=== PATIENT | male | born 1965 | race Caucasian/White ===

== ENCOUNTER 2018-05-10 22:36 | Emergency (ER) | payer OTHER ==
[2018-05-10 22:44] VITALS: BP 98/68; PULSE 110; RESP 18; TEMP 98.4
[2018-05-10] MEDS ORDERED: LIDOCAINE 1% INJ 10MG/ML (20 ML MDV) SQ STA (22:50)
--- NOTE | 2018-05-10 22:51 | ED ---
General Adult HPI - General Chief complaint: Wound/Laceration Stated complaint: hand lac Time Seen by Provider: 05/10/18 22:47 Source: patient, RN notes reviewed Mode of arrival: ambulatory Limitations: no limitations - History of Present Illness Initial comments: Patient 52-year-old male presented to the emergency room today with chief complaint of laceration to the left hand. Patient does admit that he was closing a lid on a can of vegetables when it causes laceration. Patient states tetanus is up-to-date. He denies any other complaints or symptoms at this time. Patient denies any recent fever, chills, shortness of breath, chest pain, back pain, abdominal pain, nausea or vomiting, numbness or tingling, headaches or visual changes, or any other complaints. - Related Data Home Medications Medication Instructions Recorded Confirmed ALPRAZolam [Xanax] 0.5 mg PO BID PRN 01/01/16 01/07/16 Albuterol Inhaler [Ventolin Hfa 1 - 2 puff INHALATION Q6HR PRN 01/01/16 01/07/16 Inhaler] Amitriptyline HCl 25 mg PO HS 01/01/16 01/01/16 Cholecalciferol [Vitamin D3] 2,000 unit PO DAILY 01/01/16 01/01/16 Fluticasone Nasal Percival [Flonase 1 spray EA NOSTRIL DAILY 01/01/16 01/07/16 Nasal Percival] Gabapentin [Neurontin] 200 mg PO TID 01/01/16 01/01/16 HYDROcodone/APAP 7.5-325MG [[place] 1 tab PO Q6HR PRN 01/01/16 01/07/16 7.5-325] Losartan [Cozaar] 12.5 mg PO DAILY 01/01/16 01/01/16 Methocarbamol [Robaxin] 1,000 mg PO HS 01/01/16 01/07/16 Metoprolol Succinate [Toprol XL] 50 mg PO HS 01/01/16 01/01/16 Metoprolol Succinate [Toprol XL] 100 mg PO QAM 01/01/16 01/01/16 Ranitidine HCl [Zantac] 150 mg PO BID 01/01/16 01/07/16 Simvastatin [Zocor] 20 mg PO HS 01/01/16 01/01/16 Spironolactone [Aldactone] 25 mg PO DAILY 01/01/16 01/01/16 Warfarin [Coumadin] 5 mg PO SUMOWETHFR 01/01/16 01/01/16 Warfarin [Coumadin] 7.5 mg PO TUSA 01/01/16 01/01/16 Pseudoephedrine [Sudafed] 1 cap PO DIRECTED PRN 01/07/16 01/07/16 Allergies Allergy/AdvReac Type Severity Reaction Status Date / Time diphenhydramine HCl Allergy Itching Verified 05/10/18 22:44 [From Benadryl] Review of Systems ROS Statement: Those systems with pertinent positive or pertinent negative responses have been documented in the HPI. ROS Other: All systems not noted in ROS Statement are negative. Past Medical History Past Medical History: Atrial Fibrillation, Hypertension Additional Past Medical History / Comment(s): migranes History of Any Multi-Drug Resistant Organisms: None Reported Past Surgical History: No Surgical Hx Reported Additional Past Surgical History / Comment(s): Ablasion for AFIB. Past Psychological History: No Psychological Hx Reported Smoking Status: Current every day smoker Past Alcohol Use History: Daily Past Drug Use History: None Reported General Exam - General Exam Comments Initial Comments: General: The patient is awake and alert, in no distress, and does not appear acutely ill. Neck: The neck is supple, there is no tenderness or JVD. Musculoskeletal: Patient shows good range of motion. Sensations intact. Cap refill less than 2 seconds. Radial pulse 2+. Strength 5/5 in all areas. Neurological: A&O x 3. CN II-XII intact, There are no obvious motor or sensory deficits. Coordination appears grossly intact. Speech is normal. Skin: Patient does have laceration to the web space treated first and second digit of the left hand. No active bleeding. Psychiatric: Normal mood and affect. Limitations: no limitations Course Vital Signs 05/10/18 22:41 Temperature 98.4 F Pulse Rate 110 H Respiratory 18 Rate Blood Pressure 98/68 O2 Sat by Pulse 95 Oximetry Procedures - Procedures Initial comment: 2 cm linear laceration to the first and second digit of the left hand. No active bleeding. The skin was anesthetized with 1% lidocaine. The laceration was then cleansed with and irrigated with normal saline. The wound was inspected , and there was no evidence of injury to deep structures. No foreign body was noted in the wound. A total of default value skin sutures were placed utilizing 4-0 nylon. Disposition Clinical Impression: Laceration Disposition: HOME SELF-CARE Condition: Good Instructions: Laceration (ED) Additional Instructions: Please return to the emergency room in 8-10 days to have sutures removed. Please watch for any signs of infection which may include increased pain, swelling, redness, fever or chills. Please return to emergency room for any signs of infection do occur. Please use clean soap and water over the area to prevent scabbing over your stitches. Please leave wound covered for the first 24-48 hours and then leave wound open to air. Please return to the emergency room for any other concerns. Is patient prescribed a controlled substance at d/c from ED?: No Referrals: Ranjeet Cano MD [Primary Care Provider] - 1-2 days Time of Disposition: 23:13
== END 2018-05-10 23:32 | disposition home or self-care (01) ==
LOC: EC 22:36
DX: S61.012A Laceration without foreign body of left thumb without damage to nail, initial encounter (principal); S61.211A Laceration without foreign body of left index finger without damage to nail, initial encounter; I48.91 Unspecified atrial fibrillation; I10 Essential (primary) hypertension; F17.200 Nicotine dependence, unspecified, uncomplicated; Z79.51 Long term (current) use of inhaled steroids; Z79.01 Long term (current) use of anticoagulants; Z79.899 Other long term (current) drug therapy; W26.8XXA Contact with other sharp object(s), not elsewhere classified, initial encounter; Y93.89 Activity, other specified
CPT/HCPCS: 99282; 12001; J2001

== ENCOUNTER 2019-11-22 12:23 | Emergency (ER) | payer OTHER ==
[2019-11-22 12:46] VITALS: PULSE 88; TEMP 97.9
[2019-11-22] MEDS ORDERED: SODIUM CHLORIDE 0.9% 1,000 ML IV STA (13:25)
--- NOTE | 2019-11-22 13:36 | ED ---
Fall HPI - General Chief Complaint: Fall Stated Complaint: head laceration Time Seen by Provider: 11/22/19 13:14 Source: patient, RN notes reviewed Mode of arrival: ambulatory Limitations: no limitations - History of Present Illness Initial Comments: 54-year-old male presents emergency Department with chief complaint of head injury. Patient states she's not exactly sure what happened. He states that something happened in the middle of night that he does not remember. He woke up with blood on his face, realize that there was a laceration to his scalp he did state that he must have fallen into his glass cabinet that there was broken glass, damage to his room. Patient admits that he takes multiple medications and makes him drowsy including Xanax, gabapentin, Flexeril and he states that he's been having insomnia issues so he took some Ambien last night which is not normal for him. Patient has no complaints of a mild headache at this time te tanus is up-to-date within last 5 years. Denies any blurred vision no focal weakness. - Related Data Home Medications Medication Instructions Recorded Confirmed ALPRAZolam [Xanax] 0.5 mg PO BID PRN 01/01/16 05/10/18 Cholecalciferol [Vitamin D3] 2,000 unit PO DAILY 01/01/16 05/10/18 Metoprolol Succinate [Toprol XL] 50 mg PO HS 01/01/16 05/10/18 Simvastatin [Zocor] 20 mg PO HS 01/01/16 05/10/18 Spironolactone [Aldactone] 25 mg PO DAILY 01/01/16 05/10/18 Amitriptyline HCl [Elavil] 50 mg PO HS 05/10/18 05/10/18 Flecainide [Tambocor] 50 mg PO Q12HR 05/10/18 05/10/18 Gabapentin [Neurontin] 300 mg PO BID 05/10/18 05/10/18 Warfarin [Coumadin] 5 mg PO MOWEFR 05/10/18 05/10/18 Warfarin [Coumadin] 10 mg PO SUTUTHSA 05/10/18 05/10/18 Allergies Allergy/AdvReac Type Severity Reaction Status Date / Time diphenhydramine HCl Allergy Itching Verified 11/22/19 12:46 [From Benadryl] Review of Systems ROS Statement: Those systems with pertinent positive or pertinent negative responses have been documented in the HPI. ROS Other: All systems not noted in ROS Statement are negative. Past Medical History Past Medical History: Atrial Fibrillation, Hypertension Additional Past Medical History / Comment(s): migranes History of Any Multi-Drug Resistant Organisms: None Reported Past Surgical History: Ablation Additional Past Surgical History / Comment(s): Ablasion for AFIB. Past Psychological History: No Psychological Hx Reported Smoking Status: Current every day smoker Past Alcohol Use History: Daily Past Drug Use History: Marijuana General Exam Limitations: no limitations General appearance: alert, in no apparent distress Head exam: Present: atraumatic, normocephalic. Absent: normal inspection (Large 6 cm laceration to left side of scalp) Eye exam: Present: normal appearance, PERRL, EOMI. Absent: scleral icterus, conjunctival injection, periorbital swelling ENT exam: Present: normal exam, normal oropharynx, mucous membranes moist Neck exam: Present: normal inspection, full ROM. Absent: tenderness, meningismus, lymphadenopathy Respiratory exam: Present: normal lung sounds bilaterally. Absent: respiratory distress, wheezes, rales, rhonchi, stridor Cardiovascular Exam: Present: regular rate, normal rhythm, normal heart sounds. Absent: systolic murmur, diastolic murmur, rubs, gallop, clicks GI/Abdominal exam: Present: soft, normal bowel sounds. Absent: distended, tenderness, guarding, rebound, rigid Extremities exam: Present: normal inspection, full ROM, normal capillary refill. Absent: tenderness, pedal edema, joint swelling, calf tenderness Back exam: Absent: CVA tenderness (R), CVA tenderness (L) Neurological exam: Present: alert, oriented X3, CN II-XII intact, reflexes normal. Absent: motor sensory deficit Skin exam: Present: warm, dry, intact, normal color. Absent: rash Course Vital Signs 11/22/19 12:39 Temperature 97.9 F Pulse Rate 88 Respiratory 20 Rate Blood Pressure 144/96 O2 Sat by Pulse 97 Oximetry Procedures - Laceration Laceration #1 Indication: laceration Site: scalp Size (cm): 6 Description: irregular Depth: simple, single layer Anesthetic Used: lidocaine 1%, without epi Anesthesia Technique: local infiltration Amount (mls): 8 Pre-repair: wound explored, irrigated extensively, deep structures intact Type of Sutures: nylon Size of Sutures: 5-0 Number of Sutures: 10 Technique: simple, interrupted Patient Tolerated Procedure: well, no complications Medical Decision Making - Medical Decision Making 54-year-old male presented for head injury, laceration. Patient had lab work, EKG, CT her brain and C-spine, rib series. There may be possible rib fracture though he did have multiple prior rib fractures that were healing. Patient has no evidence of pneumothorax. CT shows old fractures and possible mastoiditis though he has no clinical signs and no tenderness of his mastoid. Patient's scalp laceration was thoroughly cleaned, closed. Patient's tetanus is up-to-date. Patient will be discharged with recheck within 24 hours and return parameters were discussed. I do feel that patient did not have the recommendation of his injury secondary to polysubstance drugs including Ambien, Flexeril, Xanax, gabapentin. I did discuss that he should not mix his medications and he will discuss this with his PCP. - Lab Data Result diagrams: 11/22/19 13:29 11/22/19 13:29 Lab Results 11/22/19 11/22/19 11/22/19 Range/Units 13:29 13:29 13:29 WBC 7.1 (3.8-10.6) k/uL RBC 4.19 L (4.30-5.90) m/uL Hgb 13.2 (13.0-17.5) gm/dL Hct 40.5 (39.0-53.0) % MCV 96.5 (80.0-100.0) fL MCH 31.5 (25.0-35.0) pg MCHC 32.6 (31.0-37.0) g/dL RDW 13.1 (11.5-15.5) % Plt Count 200 (150-450) k/uL Neutrophils % 71 % Lymphocytes % 19 % Monocytes % 6 % Eosinophils % 1 % Basophils % 0 % Neutrophils # 5.0 (1.3-7.7) k/uL Lymphocytes # 1.4 (1.0-4.8) k/uL Monocytes # 0.4 (0-1.0) k/uL Eosinophils # 0.1 (0-0.7) k/uL Basophils # 0.0 (0-0.2) k/uL PT 9.6 (9.0-12.0) sec INR 0.9 (<1.2) APTT 23.2 (22.0-30.0) sec Sodium 141 (137-145) mmol/L Potassium 4.6 (3.5-5.1) mmol/L Chloride 108 H (98-107) mmol/L Carbon Dioxide 25 (22-30) mmol/L Anion Gap 8 mmol/L BUN 17 (9-20) mg/dL Creatinine 0.69 (0.66-1.25) mg/dL Est GFR (CKD-EPI)AfAm >90 (>60 ml/min/1.73 sqM) Est GFR (CKD-EPI)NonAf >90 (>60 ml/min/1.73 sqM) Glucose 111 H (74-99) mg/dL Calcium 9.6 (8.4-10.2) mg/dL Magnesium 2.0 (1.6-2.3) mg/dL Total Bilirubin 0.6 (0.2-1.3) mg/dL AST 39 (17-59) U/L ALT 62 H (4-49) U/L Alkaline Phosphatase 75 (38-126) U/L Troponin I (0.000-0.034) ng/mL Total Protein 6.9 (6.3-8.2) g/dL Albumin 4.4 (3.5-5.0) g/dL Urine Color Urine Appearance (Clear) Urine pH (5.0-8.0) Ur Specific [place] (1.001-1.035) Urine Protein (Negative) Urine Glucose (UA) (Negative) Urine Ketones (Negative) Urine Blood (Negative) Urine Nitrite (Negative) Urine Bilirubin (Negative) Urine Urobilinogen (<2.0) mg/dL Ur Leukocyte Esterase (Negative) 11/22/19 11/22/19 Range/Units 13:29 13:33 WBC (3.8-10.6) k/uL RBC (4.30-5.90) m/uL Hgb (13.0-17.5) gm/dL Hct (39.0-53.0) % MCV (80.0-100.0) fL MCH (25.0-35.0) pg MCHC (31.0-37.0) g/dL RDW (11.5-15.5) % Plt Count (150-450) k/uL Neutrophils % % Lymphocytes % % Monocytes % % Eosinophils % % Basophils % % Neutrophils # (1.3-7.7) k/uL Lymphocytes # (1.0-4.8) k/uL Monocytes # (0-1.0) k/uL Eosinophils # (0-0.7) k/uL Basophils # (0-0.2) k/uL PT (9.0-12.0) sec INR (<1.2) APTT (22.0-30.0) sec Sodium (137-145) mmol/L Potassium (3.5-5.1) mmol/L Chloride (98-107) mmol/L Carbon Dioxide (22-30) mmol/L Anion Gap mmol/L BUN (9-20) mg/dL Creatinine (0.66-1.25) mg/dL Est GFR (CKD-EPI)AfAm (>60 ml/min/1.73 sqM) Est GFR (CKD-EPI)NonAf (>60 ml/min/1.73 sqM) Glucose (74-99) mg/dL Calcium (8.4-10.2) mg/dL Magnesium (1.6-2.3) mg/dL Total Bilirubin (0.2-1.3) mg/dL AST (17-59) U/L ALT (4-49) U/L Alkaline Phosphatase (38-126) U/L Troponin I <0.012 (0.000-0.034) ng/mL Total Protein (6.3-8.2) g/dL Albumin (3.5-5.0) g/dL Urine Color Yellow Urine Appearance Clear (Clear) Urine pH 6.0 (5.0-8.0) Ur Specific [place] 1.012 (1.001-1.035) Urine Protein Negative (Negative) Urine Glucose (UA) Negative (Negative) Urine Ketones Negative (Negative) Urine Blood Negative (Negative) Urine Nitrite Negative (Negative) Urine Bilirubin Negative (Negative) Urine Urobilinogen <2.0 (<2.0) mg/dL Ur Leukocyte Esterase Negative (Negative) Disposition Clinical Impression: Fall, Scalp laceration, Rib fracture Disposition: HOME SELF-CARE Condition: Stable Instructions (If sedation given, give patient instructions): Head Injury (ED), Laceration (ED) Additional Instructions: Have sutures removed in 10 days.Please return to the Emergency Department if symptoms worsen or any other concerns. Is patient prescribed a controlled substance at d/c from ED?: No Referrals: Ranjeet Cano MD [Primary Care Provider] - 1-2 days
[2019-11-22 14:06] LABS: Basophils % (A) 0 %; Eosinophils # (A) 0.1 k/uL (0-0.7); Eosinophils % (A) 1 %; HCT 40.5 % (39.0-53.0); HGB 13.2 gm/dL (13.0-17.5); Lymphocytes # (A) 1.4 k/uL (1.0-4.8); Lymphocytes % (A) 19 %; MCH 31.5 pg (25.0-35.0); MCHC 32.6 g/dL (31.0-37.0); MCV 96.5 fL (80.0-100.0); Mean Platelet Volume 8.7; Monocytes # (A) 0.4 k/uL (0-1.0); Monocytes % (A) 6 %; Neutrophils % (A) 71 %; Platelet Count 200 k/uL (150-450); RBC 4.19 m/uL (4.30-5.90); RDW 13.1 % (11.5-15.5); WBC 7.1 k/uL (3.8-10.6)
[2019-11-22 14:14] LABS: Appearance,Urine Clear (Clear); Bilirubin,Urine Negative (Negative); Blood,Urine Negative (Negative); Color,Urine Yellow; Glucose,Urine (UA) Negative (Negative); Ketones,Urine Negative (Negative); Leukocyte Esterase,Urine Negative (Negative); Nitrite,Urine Negative (Negative); Protein,Urine Negative (Negative); Specific Gravity,Urine 1.012 (1.001-1.035); Urobilinogen,Urine <2.0 mg/dL (<2.0)
[2019-11-22 14:17] LABS: ALT 62 U/L (4-49); AST 39 U/L (17-59); African American GFR (CKD) >90 (>60 ml/min/1.73 sqM); Albumin 4.4 g/dL (3.5-5.0); Alkaline Phosphatase 75 U/L (38-126); Anion Gap 8 mmol/L; Blood Urea Nitrogen 17 mg/dL (9-20); Calcium 9.6 mg/dL (8.4-10.2); Carbon Dioxide 25 mmol/L (22-30); Chloride 108 mmol/L (98-107); Glucose 111 mg/dL (74-99); INR 0.9 (<1.2); Non-African American GFR(CKD) >90 (>60 ml/min/1.73 sqM); Partial Thromboplastin Time 23.2 sec (22.0-30.0); Potassium 4.6 mmol/L (3.5-5.1); Prothrombin Time 9.6 sec (9.0-12.0); Sodium 141 mmol/L (137-145); Total Bilirubin 0.6 mg/dL (0.2-1.3); Total Protein 6.9 g/dL (6.3-8.2)
[2019-11-22] MEDS ORDERED: LIDOCAINE 1% INJ 10MG/ML (20 ML MDV) SQ ONE (14:30)
--- NOTE | 2019-11-22 14:43 | CT ---
EXAMINATION TYPE: CT brain mane sawant DATE OF EXAM: 11/22/2019 COMPARISON: 02/03/2010 HISTORY: 54-year-old male Head injury, laceration, syncope CT DLP: 1363.8 mGycm Automated exposure control for dose reduction was used. Technique: Examination of the head was done in axial plane without intravenous contrast. Coronal and sagittal reconstructions performed. CT of the cervical spine was obtained in axial plane without intravenous injection of contrast mater ial. Coronal and sagittal reformatted images were obtained from the axial views for evaluation of f ractures, spinal alignment and canal. FINDINGS: Head: There is no evidence of acute intracranial hemorrhage, acute ischemic changes, mass, mass-effect, or extra-axial fluid collection. There is no effacement of cerebral sulci or basal subarachnoid cister ns. There is no hydrocephalus. There is no midline shift. Whitlock-white matter distinction is preserv ed. Bilateral nasal bone fractures with leftward nasal septal deviation. No overlying soft tissue swellin g. There is additional blowout fracture of the left orbital floor without any abnormal opacification in the left maxillary sinus, also possibly chronic. Mucosal retention cyst versus polyp right sphenoi d sinus. Trapped fluid left mastoid air cells. There is a deep scalp laceration along the left frontal convexity. No underlying calvarial fracture. Mild bifrontal atrophy. Old lacunar infarct right basal ganglia. Cervical spine: No craniocervical junction and midbody, predental space widening, or prevertebral soft tissue swellin g. Reversal of the normal cervical lordosis. No acute fracture of the cervical spine. Alignment is maintained. Mild multilevel degenerative disc a disease. Possible disc herniation at C6-C7 causing mild or modera te spinal canal stenosis. Scattered mild facet and uncovertebral joint arthropathy. Variable mild neuroforaminal stenoses. Sagittal and coronal reformatted images confirm above findings. COMBINED IMPRESSION: 1. Deep scalp laceration left frontal convexity. No acute intracranial abnormality seen. Old bilatera l nasal bone fractures and old blowout fracture left orbital floor. 2. No acute fracture or malalignment of the cervical spine. Mild multilevel spondylotic change. Disc herniation at C6-C7 may cause a mild or moderate spinal canal stenosis. 3. Trapped fluid left mastoid air cells. Correlate for any mastoid pain to exclude mastoiditis.
--- NOTE | 2019-11-22 15:02 | XR ---
EXAMINATION TYPE: PA view chest and right rib series DATE OF EXAM: 11/22/2019 COMPARISON: 02/03/2010 HISTORY: 54-year-old male with right rib pain after fall TECHNIQUE: 5 views FINDINGS: The cardiomediastinal silhouette, aorta, and pulmonary vasculature are within normal limits. Mild int erstitial prominence. No consolidation, pneumothorax, or pleural effusion. Irregularity along the right lateral fifth rib. No additional displaced rib fracture identified. IMPRESSION: 1. No acute cardiopulmonary process. 2. Irregularity along the right lateral fifth rib suspicious for a subtle nondisplaced rib fracture. Correlate for pinpoint tenderness here.
[2019-11-22 16:00] VITALS: BP 140/88; RESP 18
== END 2019-11-22 15:57 | disposition home or self-care (01) ==
LOC: EC 12:23
DX: S01.01XA Laceration without foreign body of scalp, initial encounter (principal); S22.31XA Fracture of one rib, right side, initial encounter for closed fracture; I48.91 Unspecified atrial fibrillation; I10 Essential (primary) hypertension; G47.00 Insomnia, unspecified; F17.200 Nicotine dependence, unspecified, uncomplicated; Z88.8 Allergy status to other drugs, medicaments and biological substances; Z79.01 Long term (current) use of anticoagulants; Z79.899 Other long term (current) drug therapy; Z86.69 Personal history of other diseases of the nervous system and sense organs; Z87.81 Personal history of (healed) traumatic fracture; Z98.890 Other specified postprocedural states; W25.XXXA Contact with sharp glass, initial encounter; W19.XXXA Unspecified fall, initial encounter; Y92.009 Unspecified place in unspecified non-institutional (private) residence as the place of occurrence of the external cause
CPT/HCPCS: 36415; 93005; 80053; 83735; 84484; 85025; 85610; 85730; 81003; 71101; 72125; 70450; 99284; 12002; J2001

== ENCOUNTER 2020-08-15 14:39 | Emergency (ER) | payer OTHER ==
[2020-08-15] MEDS ORDERED: NITROGLYCERIN OINT 1 INCH/GM PACKET TOPICAL STA (14:55)
--- NOTE | 2020-08-15 15:09 | ED ---
General Adult HPI - General Stated complaint: CHEST PAIN Time Seen by Provider: 08/15/20 14:43 Source: patient, EMS, RN notes reviewed Mode of arrival: EMS Limitations: no limitations - History of Present Illness Initial comments: Patient is a pleasant 55-year-old male presenting to the emergency department with chest discomfort. Patient states years ago he did have a piece of wire go into his body. Patient feels this is moving all over his body and causing pain and paresthesias throughout. Patient mostly has discomfort in his chest. Patient states this is causing shortness of breath. Patient does have some diffuse pain. Patient does have diffuse paresthesias. No nausea. No diaphoresis. - Related Data Home Medications Medication Instructions Recorded Confirmed ALPRAZolam [Xanax] 0.5 mg PO BID PRN 01/01/16 08/15/20 Cholecalciferol [Vitamin D3] 2,000 unit PO DAILY 01/01/16 08/15/20 Amitriptyline HCl [Elavil] 50 mg PO HS 05/10/18 08/15/20 Flecainide [Tambocor] 50 mg PO Q12H 05/10/18 08/15/20 Gabapentin [Neurontin] 300 mg PO BID 05/10/18 08/15/20 Albuterol Inhaler [Ventolin Hfa 2 puff INHALATION RT-Q6H PRN 08/15/20 08/15/20 Inhaler] Cyclobenzaprine [Flexeril] 5 mg PO TID 08/15/20 08/15/20 Metoprolol Succinate (ER) [Toprol 100 mg PO DAILY 08/15/20 08/15/20 Xl] Allergies Allergy/AdvReac Type Severity Reaction Status Date / Time diphenhydramine HCl Allergy Itching Verified 08/15/20 16:40 [From Benadryl] Review of Systems ROS Statement: Those systems with pertinent positive or pertinent negative responses have been documented in the HPI. ROS Other: All systems not noted in ROS Statement are negative. Constitutional: Denies: fever Eyes: Denies: eye pain ENT: Denies: ear pain Respiratory: Reports: dyspnea Cardiovascular: Reports: chest pain Endocrine: Denies: fatigue Gastrointestinal: Denies: abdominal pain Genitourinary: Denies: dysuria Musculoskeletal: Denies: back pain Skin: Denies: rash Neurological: Reports: paresthesias. Denies: weakness Psychiatric: Reports: anxiety Past Medical History Past Medical History: Atrial Fibrillation, Hypertension Additional Past Medical History / Comment(s): migranes History of Any Multi-Drug Resistant Organisms: None Reported Past Surgical History: Ablation Additional Past Surgical History / Comment(s): Ablasion for AFIB. Past Psychological History: No Psychological Hx Reported Past Alcohol Use History: Daily Past Drug Use History: Marijuana General Exam Limitations: no limitations General appearance: alert, anxious Head exam: Present: normocephalic Eye exam: Present: normal appearance, PERRL Neck exam: Present: normal inspection Respiratory exam: Present: normal lung sounds bilaterally Cardiovascular Exam: Present: tachycardia Expanded Peripheral pulses: 2+: Radial (R), Radial (L), Dorsalis Pedis (R), Dorsalis Pedis (L) GI/Abdominal exam: Present: soft. Absent: tenderness Extremities exam: Present: normal inspection Neurological exam: Present: alert, CN II-XII intact. Absent: motor sensory deficit Psychiatric exam: Present: anxious Skin exam: Present: normal color Course Vital Signs 08/15/20 15:29 Temperature 98.4 F Pulse Rate 130 H Respiratory 20 Rate Blood Pressure 131/100 O2 Sat by Pulse 100 Oximetry EKG Findings - EKG Comments: EKG Findings:: Sinus tachycardia 123. MA 164. QRS 92. QT 300. QTc 429. Normal axis. Normal QRS. No acute ST change. Medical Decision Making - Medical Decision Making Patient was made aware of need for computed tomography scan. Patient reportedly ripped out his IV and left and stated that he was heading to [facility]. - Lab Data Result diagrams: 08/15/20 15:07 08/15/20 15:07 Lab Results 08/15/20 08/15/20 08/15/20 Range/Units 15:07 15:07 15:07 WBC 7.3 (3.8-10.6) k/uL RBC 4.60 (4.30-5.90) m/uL Hgb 14.2 (13.0-17.5) gm/dL Hct 43.9 (39.0-53.0) % MCV 95.5 (80.0-100.0) fL MCH 30.8 (25.0-35.0) pg MCHC 32.3 (31.0-37.0) g/dL RDW 12.9 (11.5-15.5) % Plt Count 246 (150-450) k/uL Neutrophils % 58 % Lymphocytes % 28 % Monocytes % 7 % Eosinophils % 5 % Basophils % 1 % Neutrophils # 4.2 (1.3-7.7) k/uL Lymphocytes # 2.1 (1.0-4.8) k/uL Monocytes # 0.5 (0-1.0) k/uL Eosinophils # 0.3 (0-0.7) k/uL Basophils # 0.1 (0-0.2) k/uL PT 9.7 (9.0-12.0) sec INR 0.9 (<1.2) APTT 23.1 (22.0-30.0) sec D-Dimer 0.88 H (<0.60) mg/L FEU Sodium 141 (137-145) mmol/L Potassium 3.9 (3.5-5.1) mmol/L Chloride 108 H (98-107) mmol/L Carbon Dioxide 25 (22-30) mmol/L Anion Gap 8 mmol/L BUN 20 (9-20) mg/dL Creatinine 1.06 (0.66-1.25) mg/dL Est GFR (CKD-EPI)AfAm >90 (>60 ml/min/1.73 sqM) Est GFR (CKD-EPI)NonAf 80 (>60 ml/min/1.73 sqM) Glucose 148 H (74-99) mg/dL Calcium 9.5 (8.4-10.2) mg/dL Magnesium 1.8 (1.6-2.3) mg/dL Total Bilirubin 0.9 (0.2-1.3) mg/dL AST 20 (17-59) U/L ALT 11 (4-49) U/L Alkaline Phosphatase 72 (38-126) U/L Troponin I (0.000-0.034) ng/mL NT-Pro-B Natriuret Pep pg/mL Total Protein 6.3 (6.3-8.2) g/dL Albumin 3.9 (3.5-5.0) g/dL 08/15/20 08/15/20 Range/Units 15:07 15:07 WBC (3.8-10.6) k/uL RBC (4.30-5.90) m/uL Hgb (13.0-17.5) gm/dL Hct (39.0-53.0) % MCV (80.0-100.0) fL MCH (25.0-35.0) pg MCHC (31.0-37.0) g/dL RDW (11.5-15.5) % Plt Count (150-450) k/uL Neutrophils % % Lymphocytes % % Monocytes % % Eosinophils % % Basophils % % Neutrophils # (1.3-7.7) k/uL Lymphocytes # (1.0-4.8) k/uL Monocytes # (0-1.0) k/uL Eosinophils # (0-0.7) k/uL Basophils # (0-0.2) k/uL PT (9.0-12.0) sec INR (<1.2) APTT (22.0-30.0) sec D-Dimer (<0.60) mg/L FEU Sodium (137-145) mmol/L Potassium (3.5-5.1) mmol/L Chloride (98-107) mmol/L Carbon Dioxide (22-30) mmol/L Anion Gap mmol/L BUN (9-20) mg/dL Creatinine (0.66-1.25) mg/dL Est GFR (CKD-EPI)AfAm (>60 ml/min/1.73 sqM) Est GFR (CKD-EPI)NonAf (>60 ml/min/1.73 sqM) Glucose (74-99) mg/dL Calcium (8.4-10.2) mg/dL Magnesium (1.6-2.3) mg/dL Total Bilirubin (0.2-1.3) mg/dL AST (17-59) U/L ALT (4-49) U/L Alkaline Phosphatase (38-126) U/L Troponin I <0.012 (0.000-0.034) ng/mL NT-Pro-B Natriuret Pep 74 pg/mL Total Protein (6.3-8.2) g/dL Albumin (3.5-5.0) g/dL - Radiology Data Radiology results: image reviewed (Chest x-ray shows no acute process) Disposition Clinical Impression: Chest pain, Anxiety Disposition: Left Against Medical Advice Is patient prescribed a controlled substance at d/c from ED?: No Referrals: Kut,Ranjeet A, MD [Primary Care Provider] - 1-2 days Time of Disposition: 16:44
[2020-08-15 15:25] LABS: ALT 11 U/L (4-49); AST 20 U/L (17-59); African American GFR (CKD) >90 (>60 ml/min/1.73 sqM); Albumin 3.9 g/dL (3.5-5.0); Alkaline Phosphatase 72 U/L (38-126); Anion Gap 8 mmol/L; Blood Urea Nitrogen 20 mg/dL (9-20); Calcium 9.5 mg/dL (8.4-10.2); Carbon Dioxide 25 mmol/L (22-30); Chloride 108 mmol/L (98-107); Glucose 148 mg/dL (74-99); Magnesium 1.8 mg/dL (1.6-2.3); Non-African American GFR(CKD) 80 (>60 ml/min/1.73 sqM); Potassium 3.9 mmol/L (3.5-5.1); Sodium 141 mmol/L (137-145); Total Bilirubin 0.9 mg/dL (0.2-1.3); Total Protein 6.3 g/dL (6.3-8.2)
[2020-08-15 15:26] LABS: Basophils # (A) 0.1 k/uL (0-0.2); Basophils % (A) 1 %; Eosinophils # (A) 0.3 k/uL (0-0.7); Eosinophils % (A) 5 %; HCT 43.9 % (39.0-53.0); HGB 14.2 gm/dL (13.0-17.5); Lymphocytes # (A) 2.1 k/uL (1.0-4.8); Lymphocytes % (A) 28 %; MCH 30.8 pg (25.0-35.0); MCHC 32.3 g/dL (31.0-37.0); MCV 95.5 fL (80.0-100.0); Monocytes # (A) 0.5 k/uL (0-1.0); Monocytes % (A) 7 %; Neutrophils # (A) 4.2 k/uL (1.3-7.7); Neutrophils % (A) 58 %; Platelet Count 246 k/uL (150-450); RDW 12.9 % (11.5-15.5); WBC 7.3 k/uL (3.8-10.6)
--- NOTE | 2020-08-15 15:29 | XR ---
EXAMINATION TYPE: XR chest 2V DATE OF EXAM: 08/15/2020 COMPARISON: 11/22/19 HISTORY: Shortness of breath TECHNIQUE: Frontal and lateral views of the chest are obtained. FINDINGS: Scattered senescent parenchymal changes noted. Hyperinflation compatible with COPD. No evidence for infiltrate. No evidence for atelectasis. Heart size is stable. Mediastinal structures are stable and grossly unremarkable. No evidence for hilar prominence. Degenerative changes dorsal spine. IMPRESSION: 1. No evidence for acute pulmonary disease.
[2020-08-15 15:33] VITALS: BP 131/100; PULSE 130; RESP 20; TEMP 98.4
[2020-08-15] MEDS: ASPIRIN 81 MG PO STA ×2 (15:39→16:01)
[2020-08-15] MEDS: LORazepam 2 MG/ML INJ IV STA ×2 (15:40→16:03)
[2020-08-15 15:44] LABS: INR 0.9 (<1.2); Partial Thromboplastin Time 23.1 sec (22.0-30.0); Prothrombin Time 9.7 sec (9.0-12.0)
[2020-08-15 16:13] LABS: D-Dimer 0.88 mg/L FEU (<0.60)
== END 2020-08-15 16:40 | disposition left against medical advice (07) ==
LOC: EC 14:39
DX: F41.9 Anxiety disorder, unspecified (principal); Z53.29 Procedure and treatment not carried out because of patient's decision for other reasons; I10 Essential (primary) hypertension; Z79.899 Other long term (current) drug therapy; Z88.8 Allergy status to other drugs, medicaments and biological substances
CPT/HCPCS: 36415; 71046; 80053; 83735; 83880; 84484; 85025; 85379; 85610; 85730; 93005; 99285

== ENCOUNTER 2020-12-08 13:42 | Inpatient (IN) | payer MEDICAID, OTHER ==
--- NOTE | 2020-12-08 14:27 | ED ---
General Adult HPI - General Chief complaint: Skin/Abscess/Foreign Body Stated complaint: FB in body Source: patient Mode of arrival: ambulatory Limitations: no limitations - History of Present Illness Initial comments: 55-year-old male presenting to the emergency department with a chief complaint of metal in his body. Patient states about 2 years ago he accidentally injected "about a foot" a welding wire and he believes now it is going throughout his whole body. Patient states he is working in a new house and believes the "magnetic field of the house" is pulling the wire out of his body. States there is some wire also coming out of his penis and anus. He states he has been attempting to pull it out and now has some lesions in the skin. Patient states he has been previously given by his primary care physician regarding this but his complaints were dismissed. Denies any suicidal, homicidal thoughts or ideations - Related Data Home Medications Medication Instructions Recorded Confirmed ALPRAZolam [Xanax] 0.5 mg PO BID PRN 01/01/16 12/08/20 Amitriptyline HCl [Elavil] 50 mg PO HS 05/10/18 12/08/20 Gabapentin [Neurontin] 300 mg PO BID PRN 05/10/18 12/08/20 Albuterol Inhaler [Ventolin Hfa 2 puff INHALATION RT-Q6H PRN 08/15/20 12/08/20 Inhaler] Cyclobenzaprine [Flexeril] 5 mg PO TID PRN 08/15/20 12/08/20 Metoprolol Succinate (ER) [Toprol 100 mg PO DAILY 08/15/20 12/08/20 Xl] Spironolactone [Aldactone] 25 mg PO DAILY 12/08/20 12/08/20 Allergies Allergy/AdvReac Type Severity Reaction Status Date / Time diphenhydramine HCl Allergy Itching Verified 12/08/20 15:06 [From Benadryl] Review of Systems ROS Statement: Those systems with pertinent positive or pertinent negative responses have been documented in the HPI. ROS Other: All systems not noted in ROS Statement are negative. Past Medical History Past Medical History: Atrial Fibrillation, Hypertension Additional Past Medical History / Comment(s): migranes History of Any Multi-Drug Resistant Organisms: None Reported Past Surgical History: Ablation Additional Past Surgical History / Comment(s): Ablasion for AFIB. Past Psychological History: No Psychological Hx Reported Smoking Status: Current every day smoker Past Alcohol Use History: Daily Past Drug Use History: Marijuana General Exam Limitations: no limitations General appearance: alert, in no apparent distress Head exam: Present: atraumatic, normocephalic, normal inspection Eye exam: Present: normal appearance, PERRL, EOMI Pupils: Present: normal accommodation ENT exam: Present: normal exam, normal oropharynx, mucous membranes moist Neck exam: Present: normal inspection, full ROM. Absent: tenderness Respiratory exam: Present: normal lung sounds bilaterally. Absent: respiratory distress, wheezes, rales Cardiovascular Exam: Present: regular rate, normal rhythm, normal heart sounds Rectal exam: Present: normal inspection exam: Present: normal inspection (Small abrasions in the penis ), other. Absent: testicular tenderness, urethral discharge, scrotal swelling, vertical testicular lie Extremities exam: Present: normal inspection, full ROM Back exam: Present: normal inspection, full ROM Neurological exam: Present: alert, oriented X3, normal gait Psychiatric exam: Present: normal affect, normal mood Skin exam: Present: warm, dry, intact, normal color Course Vital Signs 12/08/20 12/08/20 13:47 16:12 Temperature 98.6 F Pulse Rate 100 77 Respiratory 17 18 Rate Blood Pressure 146/88 111/93 O2 Sat by Pulse 95 98 Oximetry Medical Decision Making - Medical Decision Making 55-year-old male presenting to emergency Department with a chief complaint of metal in the body. On physical examination, patient appears to be acutely psychotic. The story is somewhat inconsistent. I did examine his body and with found multiple lesions where patient is trying to pluck away the skin. exam is unremarkable. No homicidal, suicidal thoughts or ideations. EPS to evaluate patient. Patient was petitioned. Clinical certificate filled by Dr Spicer. Patient will be admitted for acute psychosis. He was given 4 mg of Haldol. 20 mg of Geodon authorized by Dr Smith. - Lab Data Lab Results 12/08/20 Range/Units 14:36 Coronavirus (PCR) Not Detected (Not Detectd) Disposition Clinical Impression: Acute psychosis Disposition: ADMITTED IP TO THIS [facility] Condition: Fair Is patient prescribed a controlled substance at d/c from ED?: No Time of Disposition: 16:12
[2020-12-08] MEDS ORDERED: HALOPERIDOL LACTATE 5 MG/ML 1 ML VIAL IM STA (15:11)
[2020-12-08] MEDS ORDERED: MAG HYDROX/AL HYDROX/SIMETH 30 ML CUP PO PRN (15:55)
[2020-12-08] MEDS ORDERED: ACETAMINOPHEN TAB 325 MG TAB PO PRN (15:55)
[2020-12-08] MEDS ORDERED: MAGNESIUM HYDROXIDE 2,400 MG/10 ML CUP PO PRN (15:55)
[2020-12-08] MEDS ORDERED: LORazepam 1 MG TAB PO PRN (15:55)
[2020-12-08] MEDS ORDERED: CYCLOBENZAPRINE 5 MG TAB PO PRN (16:00)
[2020-12-08] MEDS ORDERED: GABAPENTIN 300 MG CAP PO PRN (16:00)
[2020-12-08] MEDS ORDERED: ALBUTEROL INHALER 60 PUFF/8 GM INHALER (MHU) INHALATION PRN (16:00)
[2020-12-08] MEDS ORDERED: LORazepam 2 MG/ML INJ IM PRN (16:02)
[2020-12-08] MEDS ORDERED: ZIPRASIDONE 20 MG VIAL IM ONE (17:35)
[2020-12-08] MEDS ORDERED: HALOPERIDOL LACTATE 5 MG/ML 1 ML VIAL IM PRN (21:33)
[2020-12-08] MEDS ORDERED: HALOPERIDOL LACTATE 5 MG/ML 1 ML VIAL IM SCH (22:00)
[2020-12-08] MEDS: AMITRIPTYLINE HCL 50 MG TAB PO SCH (22:03)
[2020-12-09 06:39] LABS: Basophils % (A) 1 %; Eosinophils # (A) 0.2 k/uL (0-0.7); Eosinophils % (A) 3 %; HGB 13.3 gm/dL (13.0-17.5); Lymphocytes # (A) 2.4 k/uL (1.0-4.8); Lymphocytes % (A) 46 %; MCH 31.3 pg (25.0-35.0); MCHC 32.5 g/dL (31.0-37.0); MCV 96.1 fL (80.0-100.0); Mean Platelet Volume 8.6; Monocytes # (A) 0.3 k/uL (0-1.0); Monocytes % (A) 7 %; Neutrophils # (A) 2.1 k/uL (1.3-7.7); Neutrophils % (A) 40 %; Platelet Count 219 k/uL (150-450); RBC 4.26 m/uL (4.30-5.90); RDW 13.8 % (11.5-15.5); WBC 5.2 k/uL (3.8-10.6)
[2020-12-09 06:45] LABS: ALT 13 U/L (4-49); AST 21 U/L (17-59); African American GFR (CKD) >90 (>60 ml/min/1.73 sqM); Albumin 3.7 g/dL (3.5-5.0); Alkaline Phosphatase 55 U/L (38-126); Anion Gap 3 mmol/L; Blood Urea Nitrogen 17 mg/dL (9-20); Calcium 9.5 mg/dL (8.4-10.2); Carbon Dioxide 29 mmol/L (22-30); Chloride 110 mmol/L (98-107); Cholesterol 132 mg/dL (<200); Glucose 99 mg/dL (74-99); HDL Cholesterol 44 mg/dL (40-60); LDL Cholesterol,Calculated 74 mg/dL (0-99); Non-African American GFR(CKD) >90 (>60 ml/min/1.73 sqM); Potassium 4.2 mmol/L (3.5-5.1); Sodium 142 mmol/L (137-145); Total Bilirubin 0.6 mg/dL (0.2-1.3); Total Protein 6.1 g/dL (6.3-8.2); Triglycerides 72 mg/dL (<150)
[2020-12-09] MEDS: METOPROLOL SUCCINATE (ER) 100 MG TAB.ER.24H PO SCH (08:27)
[2020-12-09] MEDS: SPIRONOLACTONE 25 MG TAB PO SCH (08:28)
--- NOTE | 2020-12-09 14:20 | P.HP ---
Psychiatric H&P - . H&P Date: 12/09/20 History & Physical: IDENTIFYING DATA: He is a 55-year-old single male admitted to the psychiatric unit involuntarily. A psychiatric nurse completed a Petition that read "patient thinks wires are in his veins and water system. He has been trying to remove them from his body. Patient is a potential harm to self and has psychosis." HISTORY OF PRESENT ILLNESS: I reviewed medical record and interviewed the patient. He described a well-formed and detailed belief that a piece of welding wire is inside his body. He had an industrial accident "about 2 years ago" where he accidentally stabbed himself with the welding wire. He believes that t his piece of entered his body, is in his blood system and has been traveling throughout his body. He talked about the wire traveling in his arms, neck, face legs and recently in his penis and anus. He has seen the wire under his skin and believes that he has felt the wire under his skin. He alleges that he has picked the wire out of his skin, saw the metal wrapped around penis and has pulled a piece of the plantar out of his anus. In addition, he is preoccupied about the electricity in his mother's home. She lives in a basement apartment and believes that the electricity in the house is damaged or faulty. He closes most of the circuits in the house and disconnects the circuits at night concerned about his and his mother's safety. He noticed difficulty with electricity because he felt the magnetic field affecting the metal that is in his body. He believes that the problems with electricity was caused by faulty installation tele-communication equipment. 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 He is distressed about his physical complaints and the difficulties he perceives with the home utilities but denies feeling persistently depressed or having thoughts of or suicide. He is anxious over the above difficulties but denied persistent and severe anxiety that interferes with his ability to function. He denied experiencing auditory hallucinations. He denied thought insertion, thought broadcasting or thought control. He is paranoid about the household utilities and the utility company. He denied use of drugs and was vague about his alcohol use. He alleges that he drinks infrequently alleging that he had maybe 1 or 2 beers over the last 2 weeks in addition a couple of single shot liquor bottles. However, he has a lo ng history of alcohol use problems including 6 DUIs. 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 PAST PSYCHIATRIC HISTORY: He denied prior psychiatric hospitalizations. He denied mental health treatment except when he was in a residential substance abuse treatment program PAST MEDICAL HISTORY: Atrial fibrillation, hypertension, migraines ALLERGIES: Diphenhydramine SUBSTANCE USE HISTORY: He has a history of alcohol use disorder as described above. He was in this [facility] substance abuse treatment program when it was in existence. FAMILY PSYCHIATRIC/SUBSTANCE USE HISTORY: He was unaware of family history of psychiatric problems LEGAL HISTORY: He has had multiple DUI convictions. He was incarcerated for 1 year following his fifth or sixth DUI. SOCIAL HISTORY: His born and raised in [place]. His parents when he was young and his mother remained . He left school in 11th grade but received a GED when he was in [employer]. He is single and has no children. 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 He's been unemployed since January 2020. He receives unemployment benefits. He is lived primarily with his mother. MENTAL STATUS EXAM: He presented as a thin balding elderly male who was irritable but cooperative. He made eye contact and appeared to attend to the interview. He had no distinction features are prominent physical maladies. He had an angry facial expression. He was alert and oriented to person, place and time. He had no abnormality of psychomotor activity. His gait was slow but steady. His speech was spontaneous with normal rate and rhythm. His affect was angry and appropriate. He denied suicidal ideation and wishes. He denied homicidal ideation. Denied feeling hopeless, helpless or worthless. He ruminated about his chronic delusional beliefs. He described ideas of reference related to the electrical utilities and a well-formed paranoid delusional beliefs. His thinking was concrete but his associations were coherent and logical. He appears to be having somatic and possible visual hallucinations. Global impression of intellect is average to below. He has limited awareness or understanding of his illness or need for treatment. STRENGTHS: Stable housing, stable income, good physical health WEAKNESSES: Long history of substance use problems IMPRESSION: Is a 51-year-old single male presented to unit involuntarily with a fixed delusional belief as well as somatic possible visual hallucinations. His history is significant for an alcohol use disorder but he is alleging that he has been relatively absent from alcohol. PRINCIPLE DIAGNOSIS: Unspecified psychotic disorder, rule out alcohol induced psychotic disorder, rule out psychotic disorder secondary to a major neurocognitive disorder, rule out major neurocognitive disorder, alcohol use disorder severe RECOMMENDATION: Admit to the psychiatric unit. Proceed with involuntary hospitalization. Safety precautions. Consult medicine for initial physical exam and medical history. toll test worker completed initial psychosocial assessment coordinate discharge and aftercare. Continue outpatient medications including Ritalin, Flexeril, Neurontin Toprol-XL with Dr. oleary. Elavil 50 mg at bedtime for pain and sleep. Discussed a trial of an antipsychotic. Complete a [facility] cognitive assessment. Obtain collateral information from family or friends. Encourage participation in therapeutic groups and activities. Evaluate clinical status response to treatment daily basis. Allergies Allergy/AdvReac Type Severity Reaction Status Date / Time diphenhydramine HCl Allergy Itching Verified 12/08/20 15:06 [From Benadryl] Vital Signs Temp 97.9 F 12/09/20 09:00 Pulse 73 12/09/20 09:00 Resp 16 12/09/20 09:00 BP 106/67 12/09/20 09:00 Pulse Ox 97 12/08/20 20:51 Intake & Output 12/08/20 12/09/20 12/09/20 18:59 06:59 18:59 Weight 74.843 kg Laboratory Last Values WBC 5.2 k/uL (3.8-10.6) 12/09/20 05:40 RBC 4.26 m/uL (4.30-5.90) L 12/09/20 05:40 Hgb 13.3 gm/dL (13.0-17.5) 12/09/20 05:40 Hct 41.0 % (39.0-53.0) 12/09/20 05:40 MCV 96.1 fL (80.0-100.0) 12/09/20 05:40 MCH 31.3 pg (25.0-35.0) 12/09/20 05:40 MCHC 32.5 g/dL (31.0-37.0) 12/09/20 05:40 RDW 13.8 % (11.5-15.5) 12/09/20 05:40 Plt Count 219 k/uL (150-450) 12/09/20 05:40 MPV 8.6 12/09/20 05:40 Neutrophils % 40 % 12/09/20 05:40 Lymphocytes % 46 % 12/09/20 05:40 Monocytes % 7 % 12/09/20 05:40 Eosinophils % 3 % 12/09/20 05:40 Basophils % 1 % 12/09/20 05:40 Neutrophils # 2.1 k/uL (1.3-7.7) 12/09/20 05:40 Lymphocytes # 2.4 k/uL (1.0-4.8) 12/09/20 05:40 Monocytes # 0.3 k/uL (0-1.0) 12/09/20 05:40 Eosinophils # 0.2 k/uL (0-0.7) 12/09/20 05:40 Basophils # 0.0 k/uL (0-0.2) 12/09/20 05:40 Sodium 142 mmol/L (137-145) 12/09/20 05:40 Potassium 4.2 mmol/L (3.5-5.1) 12/09/20 05:40 Chloride 110 mmol/L (98-107) H 12/09/20 05:40 Carbon Dioxide 29 mmol/L (22-30) 12/09/20 05:40 Anion Gap 3 mmol/L 12/09/20 05:40 BUN 17 mg/dL (9-20) 12/09/20 05:40 Creatinine 0.74 mg/dL (0.66-1.25) 12/09/20 05:40 Est GFR (CKD-EPI)AfAm >90 (>60 ml/min/1.73 sqM) 12/09/20 05:40 Est GFR (CKD-EPI)NonAf >90 (>60 ml/min/1.73 sqM) 12/09/20 05:40 Glucose 99 mg/dL (74-99) 12/09/20 05:40 Calcium 9.5 mg/dL (8.4-10.2) 12/09/20 05:40 Total Bilirubin 0.6 mg/dL (0.2-1.3) 12/09/20 05:40 AST 21 U/L (17-59) 12/09/20 05:40 ALT 13 U/L (4-49) 12/09/20 05:40 Alkaline Phosphatase 55 U/L (38-126) 12/09/20 05:40 Total Protein 6.1 g/dL (6.3-8.2) L 12/09/20 05:40 Albumin 3.7 g/dL (3.5-5.0) 12/09/20 05:40 Triglycerides 72 mg/dL (<150) 12/09/20 05:40 Cholesterol 132 mg/dL (<200) 12/09/20 05:40 LDL Cholesterol, Calc 74 mg/dL (0-99) 12/09/20 05:40 HDL Cholesterol 44 mg/dL (40-60) 12/09/20 05:40 TSH 0.518 mIU/L (0.465-4.680) 12/09/20 05:40 Coronavirus (PCR) Not Detected (Not Detectd) 12/08/20 14:36 12/09/20 13:41
[2020-12-09] MEDS: AMITRIPTYLINE HCL 50 MG TAB PO SCH (21:50)
--- NOTE | 2020-12-10 02:23 | P.PN ---
Progress Note - Text Progress Note Date: 12/09/20 i had to leave the exam room before , patient arrival , due to emergency call (A team response) when I went back to evaluate the patient , RN told me patient was upset for not finding me , and it would be better if I try to see him tomorrow
[2020-12-10] MEDS: SPIRONOLACTONE 25 MG TAB PO SCH ×2 (07:53→08:30)
[2020-12-10] MEDS: METOPROLOL SUCCINATE (ER) 100 MG TAB.ER.24H PO SCH (07:54)
--- NOTE | 2020-12-10 12:49 | P.PN ---
Progress Note - Text Progress Note Date: 12/10/20 Clinical Problems: Delusional disorder somatic type, rule out psychotic disorder secondary to major neurocognitive disorder, rule out major neurocognitive disorder, alcohol use disorder severe Interim history: I reviewed the medical record, interviewed the patient and discussed his treatment and treatment plan during team meeting. He was markedly angry and difficult to engage. He accused me of lying on the clinical certificate. Specifically she demanded that I explained why I documented he was "hearing voices". I reviewed my clinical certificate with him and show him that nowhere did I documented that he was experiencing auditory hallucinations. He complained that he came to the [facility] to address a legitimate medical concern and has since been labeled crazy and "locked up" on this unit. He maintains that there is a wire in his body and this wire has traveled throughout his body. He showed me a small scar on his hand that appeared to be the initial entry site of the welding wire. He believes that a piece of the wire still remains in his hand. I did not palpate the presence of an object in the area he identified as the site of the wire. I told him that we could obtain a x-ray that would tell definitively rule out there is a piece of wire in his had. He replied that this piece of wire is very fine "the size of human hair" and a doctor told him that over the years it would have dissolved in his body. Even though it may not show up on x-ray does not mean that is not still present. He alleged that he came to the emergency room "a couple years ago" and a doctor removed a piece the wire from penis. He asked that I reviewe the medical record. I reviewed all his past emergency room examinations and there is no emergency room visit that corroborates his history. His probate hearing has not been scheduled. He does not participate in therapeutic groups and activities. He spends his time in his room. The transportation consultant has yet to complete the initial medical assessment. Mental status exam: He presented as a thin 55-year-old male who is angry and demanding. He made eye contact and appeared to attend to interview. He is angry facial expression. He was intermittently restless but showed no abnormal involuntary movements. Her speech was spontaneous with increased rate and volume as that was consistent with his affect. His affect was angry and irritable. He denied suicidal ideation, wishes or homicidal ideation. He feels helpless over this hospitalization but denied feeling hopeless or worthless. He continues to express the feeling somatic delusional belief as described above He denied experiencing auditory or visual hallucinations. I'm uncertain whether his physical complaints represents a somatic hallucination or is a component of his delusional belief. Assessment: He continues to maintain a fixed delusional belief. Plan: Continue inpatient treatment. Safety precautions. Probate hearing in deferral hearing pending. Continue Haldol and/or Ativan when necessary for agitation or aggression. Initial medical evaluation is pending. Consider x- rays of affect area. Begin discussion of a trial of antipsychotic. Encourage him to get out of his room and participated in activities. Evaluate clinical status response to treatment daily basis.
[2020-12-10 17:10] LABS: Hemoglobin A1C 5.6 % (4.0-6.0)
[2020-12-10] MEDS: AMITRIPTYLINE HCL 50 MG TAB PO SCH (20:33)
--- NOTE | 2020-12-11 04:55 | P.MDCNMH ---
History of Present Illness H&P Date: 12/10/20 Chief Complaint: medical evaluation 55 year old male denies any past medical history or mental health illness patient comes in to the ED, concerned regarding foreign body in his left hand and neck. then when he starts explaining the events , he obviously sounds like having delusional thoughts. 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 he described it as short piece followed by gel like structure of unknown length then he tells me about electrical issues at his house, that turned it into electromagnetic field that he can feel in his extremities He also describes an event where he had to go to the ER to remove a long wire off his penis patient currently denies any fever, chills, SOB, URI symptoms, no GI bleeding he does report trouble swallowing describing some dysphagia, however, when asked more details he goes back to the metal wire story and is wondering if that could be related. but he believes that he has lost about 25 lb in 3 months Past Medical History Past Medical History: Atrial Fibrillation, Hypertension Additional Past Medical History / Comment(s): migranes History of Any Multi-Drug Resistant Organisms: None Reported Past Surgical History: Ablation Additional Past Surgical History / Comment(s): Ablasion for AFIB. Past Psychological History: No Psychological Hx Reported Smoking Status: Current every day smoker Past Alcohol Use History: Daily Past Drug Use History: Marijuana - Past Family History family Family Medical History: No Reported History Medications and Allergies Home Medications Medication Instructions Recorded Confirmed Type ALPRAZolam [Xanax] 0.5 mg PO BID PRN 01/01/16 12/08/20 History Amitriptyline HCl [Elavil] 50 mg PO HS 05/10/18 12/08/20 History Gabapentin [Neurontin] 300 mg PO BID PRN 05/10/18 12/08/20 History Albuterol Inhaler [Ventolin Hfa 2 puff INHALATION RT-Q6H PRN 08/15/20 12/08/20 History Inhaler] Cyclobenzaprine [Flexeril] 5 mg PO TID PRN 08/15/20 12/08/20 History Metoprolol Succinate (ER) [Toprol 100 mg PO DAILY 10/01/20 01/24/21 History Xl] Spironolactone [Aldactone] 25 mg PO DAILY 12/08/20 12/08/20 History Allergies Allergy/AdvReac Type Severity Reaction Status Date / Time diphenhydramine HCl Allergy Itching Verified 12/08/20 15:06 [From Benadryl] Physical Exam Vitals: Vital Signs Pulse BP 12/10/20 07:55 71 113/76 Constitutional: No acute distress, conversant, pleasant Eyes: Anicteric sclerae, moist conjunctiva, Pupils equal round reactive to light ENMT: NC/AT Oropharynx clear, no erythema, or exudates Neck: Supple, FROM, no masses, or JVD No carotid bruits No thyromegaly Lungs: Clear to auscultation Clear to percussion Normal respiratory effort, no accessory muscle use Cardiovascular: Heart regular in rate and rhythm, No murmurs, gallops, or rubs No peripheral edema Abdominal: Soft Nontender, no guarding, rebound or rigidity Abdomen moving with respiration Normoactive bowel sounds No hepatomegaly, No splenomegaly No palpable mass No abdominal wall hernia noted Skin: Normal temperature, tone, texture, turgor No induration No subcutaneous nodules No rash, lesions small skin picking ulcers over his neck . Extremities: there is no palpable foreign body under the skin over the areas of concerns . neck, left forearm , and left hand No digital cyanosis No clubbing Pedal pulses intact and symmetrical Radial pulses intact and symmetrical No calf tenderness Psychiatric: Alert and oriented to person, place and time Appropriate affect delusional thoughts Neuro Muscles Strength 5/5 in all 4 extremities Sensation to light touch grossly present throughout Cranial nerves II-XII grossly intact No focal sensory deficits Lymphatics: no palpable cervical or supraclavicular , or inguinal lymph nodes Cranial Nerve Examination - Cranial Nerves Cranial Nerve II- Optic: Intact Cranial Nerve III- Oculomotor: Intact Cranial Nerve IV- Trochlear: Intact Cranial Nerve V- Trigeminal: Intact Cranial Nerve - Abducens: Intact Cranial Nerve VII- Facial: Intact Cranial Nerve VIII- Auditory: Intact Cranial Nerve IX- Glossopharyngeal: Intact Cranial Nerve X- Vagus: Intact Cranial Nerve XI- Accessory: Intact Cranial Nerve XII- Hypoglossal: Intact Results CBC & Chem 7: 12/09/20 05:40 12/09/20 05:40 Assessment and Plan Assessment: delusional thoughts concerns regarding foreign body in his body , or copper or lead origin XRays to areas of concerns , neck and left hand check blood level for copper and lead coonsider OP follow up with GI for dysphagia labs reviewed CBC and CMP Thank you for allowing us to participate in the care of this patient. Do not hesitate to contact us with questions. Someone can be reached from the [facility] hospitalist group at all hours of the day at [phone].
[2020-12-11] MEDS: METOPROLOL SUCCINATE (ER) 100 MG TAB.ER.24H PO SCH (07:51)
[2020-12-11] MEDS: SPIRONOLACTONE 25 MG TAB PO SCH (07:51)
--- NOTE | 2020-12-11 09:21 | XR ---
EXAMINATION TYPE: XR hand limited LT DATE OF EXAM: 12/11/2020 CLINICAL HISTORY: Foreign body, puncture injury. TECHNIQUE: Frontal and lateral images of the left hand are obtained. COMPARISON: None. FINDINGS: There is no acute fracture/dislocation evident in the left hand. Mild to moderate narrowin g throughout the PIP and DIP joints of the phalanges with mild soft tissue swelling. Relative sparing of the MCP joints. No radiodense soft tissue metallic linear foreign body or wire fragment. IMPRESSION: As above.
--- NOTE | 2020-12-11 09:26 | XR ---
EXAMINATION TYPE: XR cervical spine limited DATE OF EXAM: 12/11/2020 TECHNIQUE: Frontal, lateral, and open mouth view of the cervical spine are obtained. HISTORY: foreign body puncture injury with wire with pain COMPARISON: CT cervical spine November 22, 2019 FINDINGS: The cervical spine is visualized from C1 thru the mid C7 level, it is straightened in alig nment without evidence of acute fracture or dislocation. The pre-vertebral soft tissue appears withi n normal limits. The C1-C2 articulation is within normal limits on the open mouth view. Vertebral selma dy heights are maintained. Moderate disc space narrowing and spurring C5-6 and C6-C7 levels. Mild to moderate anterior spurring C4-C5 level. Suboptimal evaluation of C7-T1 level without radiodense linea r foreign body or wire. Overlying Soft tissue is unremarkable. IMPRESSION: As above.
--- NOTE | 2020-12-11 10:59 | P.PN ---
Progress Note - Text Progress Note Date: 12/11/20 Clinical Problems: Delusional disorder somatic type, rule out psychotic disorder secondary to major neurocognitive disorder, rule out major neurocognitive disorder, alcohol use disorder severe Interim history: I reviewed the medical record, interviewed the patient and discussed his treatment and treatment plan during team meeting. He was again markedly angry and difficult to engage. He again accused me of lying on the clinical certificate. I reminded him of our conversation yesterday where I reviewed my clinical certificate with him and showed him that I did not indicate that he was hallucinating. However, I argued that his experience that that he can feel piece of wire in his body can't be interpreted as a type of hallucination. This explanation did not go over well because he replies that he is not fing crazy. He accused the emergency room physician of not listening or performing a proper examination. He appreciated meeting with the medical equipment sales yesterday and alleged that if the emergency room physician has evaluated him as the home sales consultant had then his concerns would have been alleviated. I communicated results of the x-rays of his hands and neck emphasizing that there was no evidence for the presence of a metallic body. During our conversation he recanted on his belief that he has a wire his body. After speaking with the medical equipment sales he now believes that "it was an ingrown hair." He alleged that he never stated that he believed that he had a piece of wire in his body. He has no interest in taking an antipsychotic medication His probate hearing is scheduled for 12/12/2020. He does not participate in therapeutic groups and activities. He spends his time in his room. Mental status exam: He presented as a thin 55-year-old male who is angry and demanding. His anger escalated to where I ended the interview. He made eye contact and appeared to attend to interview. He is angry facial expression. He was intermittently restless but showed no abnormal involuntary movements. Her speech was spontaneous with increased rate and volume as that was consistent with his affect. His affect was angry and irritable. He denied suicidal ideation, wishes or homicidal ideation. He feels helpless over this hospitalization but denied feeling hopeless or worthless. He continues to express the feeling somatic delusional belief as described above He denied experiencing auditory or visual hallucinations. I'm uncertain whether his physical complaints represents a somatic hallucination or is a component of his delusional belief. Assessment: He remains angry and demanding but recanting his belief that he has a piece of wire traveling in his body. Plan: Continue inpatient treatment. Safety precautions. Continue Haldol and/or Ativan when necessary for agitation or aggression. Continue to try to discuss the benefits of an antipsychotic medication. Obtain syphilis testing. Encourage him to get out of his room and participated in activities. Evaluate clinical status response to treatment daily basis.
[2020-12-11] MEDS: AMITRIPTYLINE HCL 50 MG TAB PO SCH (20:56)
[2020-12-12 06:59] VITALS: RESP 16
[2020-12-12] MEDS: SPIRONOLACTONE 25 MG TAB PO SCH (07:51)
[2020-12-12] MEDS: METOPROLOL SUCCINATE (ER) 100 MG TAB.ER.24H PO SCH (07:51)
[2020-12-12 07:53] VITALS: BP 114/59; PULSE 85
--- NOTE | 2020-12-12 09:47 | P.DS ---
Providers Date of admission: 12/08/20 15:53 Expected date of discharge: 12/12/20 Attending physician: Agusto Stroud MD Consults: 12/08/20 15:55 Consult Physician Routine Consulting Provider: [facility] Consult Reason/Comments: medical manaagement Do you want consulting provider notified?: Yes Primary care physician: Ranjeet Chavis Kut - Discharge Diagnosis(es) (1) Acute psychosis Current Visit: Yes Status: Acute Priority: High (2) Alcohol use disorder Current Visit: Yes Status: Chronic Priority: Medium Hospital Course: Admission HPI: Initial psychiatric evaluation was completed by Dr. Stroud on 12/09/2020 who wrote: "I reviewed medical record and interviewed the patient. He described a well- formed and detailed belief that a piece of welding wire is inside his body. He had an industrial accident "about 2 years ago" where he accidentally stabbed himself with the welding wire. He believes that this piece of entered his body, is in his blood system and has been traveling throughout his body. He talked about the wire traveling in his arms, neck, face legs and recently in his penis and anus. He has seen the wire under his skin and believes that he has felt the wire under his skin. He alleges that he has picked the wire out of his skin, saw the metal wrapped around penis and has pulled a piece of the plantar out of his anus. In addition, he is preoccupied about the electricity in his mother's home. She lives in a basement apartment and believes that the electricity in the house is damaged or faulty. He closes most of the circuits in the house and disconnects the circuits at night concerned about his and his mother's safety. He noticed difficulty with electricity because he felt the magnetic field affecting the metal that is in his body. He believes that the problems with electricity was caused by faulty installation tele-communication equipment. He is apparently hired a bilingual sales consultant and is planning to kathy the [employer]. He is distressed about his physical complaints and the difficulties he perceives with the home utilities but denies feeling persistently depressed or having thoughts of or suicide. He is anxious over the above difficulties but denied persistent and severe anxiety that interferes with his ability to function. He denied experiencing auditory hallucinations. He denied thought insertion, thought broadcasting or thought control. He is paranoid about the household utilities and the [employer] company. He denied use of drugs and was vague about his alcohol use. He alleges that he drinks infrequently alleging that he had maybe 1 or 2 beers over the last 2 weeks in addition a couple of single shot liquor bottles. However, he has a long history of alcohol use problems including 6 DUIs. 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 The patient was petitioned and certified by Dr Stroud as the patient presented with limited insight. Over the course of the hospitalization, the patient primarily stayed in his room and was isolative to himself. The patient's primary delusion was believing that there was a wire within his body. Dr. Stroud also notes that there were times where the patient's anger escalated and the psychiatric interview had to end prematurely. The patient did have an x-ray of his hands and neck and the results of these which indicated to the patient. The patient was able to recant his belief that there was a wire in his body believing that it was "an ingrown hair." He continued to express no desire for an antipsychotic medication. On 12/12/20, the patient did defer mental health court. Despite not taking any antipsychotic medication, the patient did not endorse his somatic delusion was able to reason other causes for his perception of his reality. On the day of discharge, the patient is not endorsing any suicidal or homicidal ideation, intention, and/or plan. He is not reporting any auditory or visual hallucinations. He is not reporting any paranoia or other delusions. He denies any access to firearms or other weapons. He has been adherent with his medications and is not reporting any significant side effects. Patient was counseled on the medications and the need for regular compliance and was encouraged to follow-up with his outpatient appointments for mental health and primary care. The patient does have significant history of alcohol abuse and was counseled on abstaining from all substances including alcohol and marijuana. The patient was evaluated medically during his hospital stay. Diagnostic blood work was also ordered. Syphilis testing was negative. Mental status exam: General Appearance: Patient appears to be stated age is alert, pleasant, and cooperative. Patient is in no acute distress and has fair hygiene and grooming Behavior: Patient is calmly lying down in bed without any agitated behavior. Normal psychomotor activity. Eye contact is appropriate. Speech: Patient's speech is fluent and nonpressured. Mood/Affect: Patient reports their mood is "doing fine", affect is congruent and euthymic. Suicidality/Homicidality: Patient denies having any suicidal or homicidal ideation intent or plan. Perceptions: Patient denies any auditory or visual hallucinations. Though content/process: There is no evidence of any delusional thought content and thought process is linear and goal-directed. Memory and concentration: AOX3, grossly intact for the purposes of this session. Can spell "WORLD" backwards correctly. Judgment and insight: Improved Impression: Acute psychosis Alcohol use disorder Plan: -Continue with discharge today as patient has improved and stabilized psychiatrically and is not currently an imminent threat to himself and/or others. Patient will remain at chronically elevated risk for harm to self and/or others due to his alcohol abuse. -Continue medications: Elavil 50 mg by mouth at bedtime Gabapentin 300 mg twice a day when necessary Metoprolol, spironolactone, Flexeril -Patient was counseled on the need for medication compliance and appropriate follow-up at mental health and also primary care for medical issues. Patient verbalized understanding and agreed. -Social work to arrange for and conduct family meeting to ensure safety upon discharge and answer any questions/concerns. Social work also to arrange for patients follow up appointments for psychiatric care along with follow up with primary care provider. -Patient counseled on abstaining from recreational drugs and marijuana and alcohol. Was informed/educated on the adverse effects on their physical and mental health. Patient verbally agreed and understood. -Patient was instructed to return to the hospital or seek immediate medical care if their psychiatric or medical symptoms do worsen or reoccur. Vital Signs Temp 98.2 F 12/12/20 06:37 Pulse 85 12/12/20 07:52 Resp 16 12/12/20 06:37 BP 114/59 12/12/20 07:52 Pulse Ox 97 12/08/20 20:51 Laboratory Results WBC 5.2 k/uL (3.8-10.6) 12/09/20 05:40 RBC 4.26 m/uL (4.30-5.90) L 12/09/20 05:40 Hgb 13.3 gm/dL (13.0-17.5) 12/09/20 05:40 Hct 41.0 % (39.0-53.0) 12/09/20 05:40 MCV 96.1 fL (80.0-100.0) 12/09/20 05:40 MCH 31.3 pg (25.0-35.0) 12/09/20 05:40 MCHC 32.5 g/dL (31.0-37.0) 12/09/20 05:40 RDW 13.8 % (11.5-15.5) 12/09/20 05:40 Plt Count 219 k/uL (150-450) 12/09/20 05:40 MPV 8.6 12/09/20 05:40 Neutrophils % 40 % 12/09/20 05:40 Lymphocytes % 46 % 12/09/20 05:40 Monocytes % 7 % 12/09/20 05:40 Eosinophils % 3 % 12/09/20 05:40 Basophils % 1 % 12/09/20 05:40 Neutrophils # 2.1 k/uL (1.3-7.7) 12/09/20 05:40 Lymphocytes # 2.4 k/uL (1.0-4.8) 12/09/20 05:40 Monocytes # 0.3 k/uL (0-1.0) 12/09/20 05:40 Eosinophils # 0.2 k/uL (0-0.7) 12/09/20 05:40 Basophils # 0.0 k/uL (0-0.2) 12/09/20 05:40 Sodium 142 mmol/L (137-145) 12/09/20 05:40 Potassium 4.2 mmol/L (3.5-5.1) 12/09/20 05:40 Chloride 110 mmol/L (98-107) H 12/09/20 05:40 Carbon Dioxide 29 mmol/L (22-30) 12/09/20 05:40 Anion Gap 3 mmol/L 12/09/20 05:40 BUN 17 mg/dL (9-20) 12/09/20 05:40 Creatinine 0.74 mg/dL (0.66-1.25) 12/09/20 05:40 Est GFR (CKD-EPI)AfAm >90 (>60 ml/min/1.73 sqM) 12/09/20 05:40 Est GFR (CKD-EPI)NonAf >90 (>60 ml/min/1.73 sqM) 12/09/20 05:40 Glucose 99 mg/dL (74-99) 12/09/20 05:[address] Glu mg/dL 114 12/09/20 05:40 Hemoglobin A1c 5.6 % (4.0-6.0) 12/09/20 05:40 Calcium 9.5 mg/dL (8.4-10.2) 12/09/20 05:40 Total Bilirubin 0.6 mg/dL (0.2-1.3) 12/09/20 05:40 AST 21 U/L (17-59) 12/09/20 05:40 ALT 13 U/L (4-49) 12/09/20 05:40 Alkaline Phosphatase 55 U/L (38-126) 12/09/20 05:40 Total Protein 6.1 g/dL (6.3-8.2) L 12/09/20 05:40 Albumin 3.7 g/dL (3.5-5.0) 12/09/20 05:40 Triglycerides 72 mg/dL (<150) 12/09/20 05:40 Cholesterol 132 mg/dL (<200) 12/09/20 05:40 LDL Cholesterol, Calc 74 mg/dL (0-99) 12/09/20 05:40 HDL Cholesterol 44 mg/dL (40-60) 12/09/20 05:40 TSH 0.518 mIU/L (0.465-4.680) 12/09/20 05:40 Treponema pallidum Ab Non-Reactive (Non-Reactive) 12/09/20 05:40 Coronavirus (PCR) Not Detected (Not Detectd) 12/08/20 14:36 Allergies Allergy/AdvReac Type Severity Reaction Status Date / Time diphenhydramine HCl Allergy Itching Verified 12/08/20 15:06 [From Benadryl] Patient Condition at Discharge: Stable Plan - Discharge Summary Discharge Rx Participant: Yes New Discharge Prescriptions: New Spironolactone [Aldactone] 25 mg PO DAILY 30 Days tab Amitriptyline HCl [Elavil] 50 mg PO HS 30 Days tab Cyclobenzaprine [Flexeril] 5 mg PO TID PRN 30 Days tab PRN Reason: Headache Gabapentin [Neurontin] 300 mg PO BID PRN 30 Days cap PRN Reason: Headache Metoprolol Succinate (ER) [Toprol XL] 100 mg PO DAILY 30 Days tab.er.24h Continue Albuterol Inhaler [Ventolin Hfa Inhaler] 2 puff INHALATION RT-Q6H PRN 30 Days puff PRN Reason: Shortness Of Breath Discontinued ALPRAZolam [Xanax] 0.5 mg PO BID PRN PRN Reason: Anxiety Amitriptyline HCl [Elavil] 50 mg PO HS Gabapentin [Neurontin] 300 mg PO BID PRN PRN Reason: Headache Cyclobenzaprine [Flexeril] 5 mg PO TID PRN PRN Reason: Headache Metoprolol Succinate (ER) [Toprol Xl] 100 mg PO DAILY Spironolactone [Aldactone] 25 mg PO DAILY Discharge Medication List Albuterol Inhaler [Ventolin Hfa Inhaler] 2 puff INHALATION RT-Q6H PRN 30 Days puff 12/12/20 [Rx] Amitriptyline HCl [Elavil] 50 mg PO HS 30 Days tab 12/12/20 [Rx] Cyclobenzaprine [Flexeril] 5 mg PO TID PRN 30 Days tab 12/12/20 [Rx] Gabapentin [Neurontin] 300 mg PO BID PRN 30 Days cap 12/12/20 [Rx] Metoprolol Succinate (ER) [Toprol XL] 100 mg PO DAILY 30 Days tab.er.24h 12/12/20 [Rx] Spironolactone [Aldactone] 25 mg PO DAILY 30 Days tab 12/12/20 [Rx] Follow up Appointment(s)/Referral(s): Ranjeet Cano MD [Primary Care Provider] - 1-2 days Romel Valente MD [STAFF PHYSICIAN] - 2 Weeks (concerns regarding dysphagia to solid, with report weight loss of 25 lb in 3 months ) Activity/Diet/Wound Care/Special Instructions: Activity and diet as tolerated. Avoid the use of street drugs and alcohol. Take all medications as prescribed. When you are in need of refills on your medications please contact your medical provider and/or outpatient psychiatrist to have this done. Please go to scheduled outpatient appointment for aftercare treatment. If symptoms return or become worse, call the crisis line at and/or go to the nearest emergency room for evaluation. Discharge Disposition: HOME SELF-CARE
[2020-12-12 11:12] VITALS: TEMP 97.5
== END 2020-12-12 11:44 | disposition home or self-care (01) | DRG 885 ==
LOC: EC 13:42 → 3MHU 15:53
PROVIDERS: ADMIT Psychiatry & Neurology Psychiatry; ATTEND Psychiatry & Neurology Psychiatry
DX: F23 Brief psychotic disorder (principal); I48.91 Unspecified atrial fibrillation; F10.10 Alcohol abuse, uncomplicated; F17.210 Nicotine dependence, cigarettes, uncomplicated; I10 Essential (primary) hypertension; Z79.899 Other long term (current) drug therapy; Z18.9 Retained foreign body fragments, unspecified material
CPT/HCPCS: 72040; 80053; 80061; 83036; 84443; 85025; 86780; 87635; 96372; 99284

== ENCOUNTER 2021-01-24 16:18 | Inpatient (IN) | payer MEDICAID, OTHER ==
--- NOTE | 2021-01-24 17:06 | ED ---
Psych HPI - General Chief Complaint: Psychiatric Symptoms Stated Complaint: supervisor paste mixing order Time Seen by Provider: 01/24/21 16:20 Source: patient, police, RN notes reviewed Mode of arrival: ambulatory - History of Present Illness Initial Comments: This is a 55-year-old male history of psychosis history of alcohol use disorder who is brought in on a pickup order by police. He apparently is noncompliant with his treatment plan patient when asked says he has no idea why he was here he does admit to drinking a lot of alcohol today. He's not sure exactly how much however. He denies any fevers chills nausea vomiting sweats or other symptoms at this time. MD Complaint: other - Related Data Home Medications Medication Instructions Recorded Confirmed Cyclobenzaprine [Flexeril] 5 mg PO TID PRN 01/24/21 01/25/21 Simvastatin [Zocor] 20 mg PO HS 01/24/21 01/25/21 Spironolactone [Aldactone] 12.5 mg PO DAILY 01/24/21 01/25/21 Previous Rx's Medication Instructions Recorded Albuterol Inhaler [Ventolin Hfa 2 puff INHALATION RT-Q6H PRN 30 12/12/20 Inhaler] Days puff Gabapentin [Neurontin] 300 mg PO BID PRN 30 Days cap 12/12/20 Metoprolol Succinate (ER) [Toprol 100 mg PO DAILY 30 Days tab.er.24h 12/12/20 XL] Acetaminophen Tab [Tylenol] 650 mg PO Q4HR PRN tab 01/29/21 Amitriptyline HCl [Elavil] 50 mg PO HS 30 Days tab 01/29/21 Melatonin 3 mg PO HS 30 Days tablet 01/29/21 Nicotine 14Mg/24Hr Patch [Habitrol] 1 patch TRANSDERM DAILY 14 Days 01/29/21 patch Allergies Allergy/AdvReac Type Severity Reaction Status Date / Time diphenhydramine HCl Allergy Itching Verified 01/25/21 01:27 [From Benadpeterl] Review of Systems ROS Statement: Those systems with pertinent positive or pertinent negative responses have been documented in the HPI. ROS Other: All systems not noted in ROS Statement are negative. Past Medical History Past Medical History: Atrial Fibrillation, Hypertension Additional Past Medical History / Comment(s): migranes History of Any Multi-Drug Resistant Organisms: None Reported Past Surgical History: Ablation Additional Past Surgical History / Comment(s): Ablasion for AFIB. Past Psychological History: No Psychological Hx Reported Smoking Status: Current every day smoker Past Alcohol Use History: Daily Past Drug Use History: Marijuana - Past Family History Mother Family Medical History: No Reported History family Family Medical History: No Reported History General Exam - General Exam Comments Initial Comments: Pezzer well-developed asthenic appearing male who is awake alert oriented 3 he does have the smell of alcohol conjoiners on his breath Limitations: no limitations General appearance: alert, appears intoxicated Head exam: Present: atraumatic, normocephalic, normal inspection Eye exam: Present: normal appearance, PERRL, EOMI. Absent: scleral icterus, conjunctival injection, periorbital swelling ENT exam: Present: mucous membranes dry Neck exam: Present: normal inspection. Absent: tenderness, meningismus, lymphadenopathy Respiratory exam: Present: normal lung sounds bilaterally. Absent: respiratory distress, wheezes, rales, rhonchi, stridor Cardiovascular Exam: Present: normal rhythm, tachycardia (Rate of 102 on examination), normal heart sounds. Absent: systolic murmur, diastolic murmur, rubs, gallop, clicks GI/Abdominal exam: Present: soft, normal bowel sounds. Absent: distended, tenderness, guarding, rebound, rigid Extremities exam: Present: normal inspection, full ROM, normal capillary refill. Absent: tenderness, pedal edema, joint swelling, calf tenderness Back exam: Present: normal inspection Neurological exam: Present: alert, oriented X3, CN II-XII intact Psychiatric exam: Present: depressed, flat affect. Absent: suicidal ideation Skin exam: Present: warm, dry, intact, normal color. Absent: rash Course Vital Signs 01/24/21 01/24/21 16:20 19:06 Temperature 97.9 F 98.0 F Pulse Rate 102 H 81 Respiratory 20 16 Rate Blood Pressure 132/85 115/75 O2 Sat by Pulse 100 98 Oximetry - Reevaluation(s) Reevaluation #1: 01/24/21 23:25 The patient's care is endorsed to Dr. Bernal at her shift change. He was pending sobriety and evaluation by EPS. Medical Decision Making - Lab Data Result diagrams: 01/25/21 09:32 01/25/21 09:32 Lab Results 01/24/21 01/24/21 01/25/21 Range/Units 18:03 18:46 00:01 Urine Color Light Yellow Urine Appearance Clear (Clear) Urine pH 6.0 (5.0-8.0) Ur Specific [place] 1.013 (1.001-1.035) Urine Protein Negative (Negative) Urine Glucose (UA) Negative (Negative) Urine Ketones Negative (Negative) Urine Blood Negative (Negative) Urine Nitrite Negative (Negative) Urine Bilirubin Negative (Negative) Urine Urobilinogen <2.0 (<2.0) mg/dL Ur Leukocyte Esterase Negative (Negative) Urine Opiates Screen Not Detected (NotDetected) Ur Oxycodone Screen Not Detected (NotDetected) Urine Methadone Screen Not Detected (NotDetected) Ur Propoxyphene Screen Not Detected (NotDetected) Ur Barbiturates Screen Not Detected (NotDetected) Urine Barbiturates (Negative) ng/mL U Tricyclic Antidepress Detected H (NotDetected) Ur Phencyclidine Scrn Not Detected (NotDetected) Ur Amphetamine Screen (Negative) ng/mL Ur Amphetamines Screen Not Detected (NotDetected) U Methamphetamines Scrn Not Detected (NotDetected) U Benzodiazepines Scrn Detected H (NotDetected) Urine Cocaine Screen Detected H (NotDetected) U Cannabinoids Screen (Negative) ng/mL U Marijuana (THC) Screen Detected H (NotDetected) Urine Alcohol (Negative) mg/dL Serum Alcohol 157 mg/dL 01/25/21 Range/Units 00:01 Urine Color Urine Appearance (Clear) Urine pH (5.0-8.0) Ur Specific [place] (1.001-1.035) Urine Protein (Negative) Urine Glucose (UA) (Negative) Urine Ketones (Negative) Urine Blood (Negative) Urine Nitrite (Negative) Urine Bilirubin (Negative) Urine Urobilinogen (<2.0) mg/dL Ur Leukocyte Esterase (Negative) Urine Opiates Screen Negative (NotDetected) Ur Oxycodone Screen (NotDetected) Urine Methadone Screen Negative (NotDetected) Ur Propoxyphene Screen Negative (NotDetected) Ur Barbiturates Screen (NotDetected) Urine Barbiturates Negative (Negative) ng/mL U Tricyclic Antidepress (NotDetected) Ur Phencyclidine Scrn Negative (NotDetected) Ur Amphetamine Screen Negative (Negative) ng/mL Ur Amphetamines Screen (NotDetected) U Methamphetamines Scrn (NotDetected) U Benzodiazepines Scrn Negative (NotDetected) Urine Cocaine Screen Positive A (NotDetected) U Cannabinoids Screen Positive A (Negative) ng/mL U Marijuana (THC) Screen (NotDetected) Urine Alcohol Positive A (Negative) mg/dL Serum Alcohol mg/dL Disposition Clinical Impression: Psychosis Disposition: TRANSFER TO PSYCH HOSP/UNIT Condition: Fair
[2021-01-24 18:19] LABS: Amphetamine Screen,Urine Not Detected (NotDetected); Barbiturate Screen,Urine Not Detected (NotDetected); Benzodiazepines Screen,Urine Detected (NotDetected); Cocaine Screen,Urine Detected (NotDetected); Methadone Screen, Urine Not Detected (NotDetected); Opiate Screen,Urine Not Detected (NotDetected); Oxycodone Screen, Urine Not Detected (NotDetected); Phencyclidine Screen,Urine Not Detected (NotDetected); Tricyclic Antidepressant,Urine Detected (NotDetected); Urn Cannabinoid Scrn Detected (NotDetected)
[2021-01-25] MEDS ORDERED: LORazepam 1 MG TAB PO PRN (00:43)
[2021-01-25] MEDS ORDERED: MAG HYDROX/AL HYDROX/SIMETH 30 ML CUP PO PRN (00:43)
[2021-01-25] MEDS ORDERED: MAGNESIUM HYDROXIDE 2,400 MG/10 ML CUP PO PRN (00:43)
[2021-01-25] MEDS ORDERED: ALBUTEROL INHALER 60 PUFF/8 GM INHALER (MHU) INHALATION PRN (00:48)
[2021-01-25] MEDS ORDERED: LORazepam 2 MG/ML INJ IM PRN (00:50)
[2021-01-25] MEDS ORDERED: HALOPERIDOL LACTATE 5 MG/ML 1 ML VIAL IM PRN (00:52)
[2021-01-25 01:14] LABS: Appearance,Urine Clear (Clear); Bilirubin,Urine Negative (Negative); Blood,Urine Negative (Negative); Color,Urine Light Yellow; Glucose,Urine (UA) Negative (Negative); Ketones,Urine Negative (Negative); Leukocyte Esterase,Urine Negative (Negative); Nitrite,Urine Negative (Negative); Protein,Urine Negative (Negative); Specific Gravity,Urine 1.013 (1.001-1.035); Urobilinogen,Urine <2.0 mg/dL (<2.0)
[2021-01-25] MEDS: NICOTINE 14MG/24HR PATCH TRANSDERM SCH ×2 (08:52→09:30)
[2021-01-25] MEDS: METOPROLOL SUCCINATE (ER) 100 MG TAB.ER.24H PO SCH (09:26)
[2021-01-25] MEDS: SPIRONOLACTONE 25 MG TAB PO SCH (09:27)
[2021-01-25 10:01] LABS: Basophils % (A) 1 %; Eosinophils # (A) 0.2 k/uL (0-0.7); Eosinophils % (A) 3 %; HCT 43.7 % (39.0-53.0); HGB 14.3 gm/dL (13.0-17.5); Lymphocytes # (A) 1.3 k/uL (1.0-4.8); Lymphocytes % (A) 19 %; MCHC 32.7 g/dL (31.0-37.0); MCV 97.7 fL (80.0-100.0); Monocytes # (A) 0.4 k/uL (0-1.0); Monocytes % (A) 6 %; Neutrophils % (A) 70 %; Platelet Count 216 k/uL (150-450); RBC 4.47 m/uL (4.30-5.90); RDW 14.8 % (11.5-15.5); WBC 7.1 k/uL (3.8-10.6)
[2021-01-25 10:22] LABS: ALT 21 U/L (4-49); AST 30 U/L (17-59); African American GFR (CKD) >90 (>60 ml/min/1.73 sqM); Albumin 4.1 g/dL (3.5-5.0); Alkaline Phosphatase 85 U/L (38-126); Anion Gap 8 mmol/L; Blood Urea Nitrogen 19 mg/dL (9-20); Calcium 9.2 mg/dL (8.4-10.2); Carbon Dioxide 27 mmol/L (22-30); Chloride 104 mmol/L (98-107); Cholesterol 145 mg/dL (<200); Glucose 111 mg/dL (74-99); HDL Cholesterol 82 mg/dL (40-60); LDL Cholesterol,Calculated 48 mg/dL (0-99); Non-African American GFR(CKD) >90 (>60 ml/min/1.73 sqM); Potassium 4.4 mmol/L (3.5-5.1); Sodium 139 mmol/L (137-145); Total Bilirubin 0.5 mg/dL (0.2-1.3); Total Protein 6.6 g/dL (6.3-8.2); Triglycerides 75 mg/dL (<150)
[2021-01-25 10:43] LABS: Urine Alcohol Positive (Negative); Urine Barbiturate Negative (Negative); Urine Cocaine Positive (Negative); Urine Methadone Negative (Negative); Urine Opiates Negative (Negative); Urine Phencyclidine Negative (Negative)
--- NOTE | 2021-01-25 15:27 | P.HP ---
Psychiatric H&P - . H&P Date: 01/25/21 History & Physical: Allergies Allergy/AdvReac Type Severity Reaction Status Date / Time diphenhydramine HCl Allergy Itching Verified 01/25/21 01:27 [From Benadryl] Vital Signs Temp 98.0 F 01/25/21 09:32 Pulse 87 01/25/21 09:32 Resp 20 01/25/21 09:32 BP 122/83 01/25/21 09:32 Pulse Ox 99 01/25/21 09:32 Intake & Output 01/24/21 01/25/21 01/25/21 18:59 06:59 18:59 Weight 77.111 kg 75.92 kg Laboratory Last Values WBC 7.1 k/uL (3.8-10.6) 01/25/21 09:32 RBC 4.47 m/uL (4.30-5.90) 01/25/21 09:32 Hgb 14.3 gm/dL (13.0-17.5) 01/25/21 09:32 Hct 43.7 % (39.0-53.0) 01/25/21 09:32 MCV 97.7 fL (80.0-100.0) 01/25/21 09:32 MCH 32.0 pg (25.0-35.0) 01/25/21 09:32 MCHC 32.7 g/dL (31.0-37.0) 01/25/21 09:32 RDW 14.8 % (11.5-15.5) 01/25/21 09:32 Plt Count 216 k/uL (150-450) 01/25/21 09:32 MPV 8.0 01/25/21 09:32 Neutrophils % 70 % 01/25/21 09:32 Lymphocytes % 19 % 01/25/21 09:32 Monocytes % 6 % 01/25/21 09:32 Eosinophils % 3 % 01/25/21 09:32 Basophils % 1 % 01/25/21 09:32 Neutrophils # 5.0 k/uL (1.3-7.7) 01/25/21 09:32 Lymphocytes # 1.3 k/uL (1.0-4.8) 01/25/21 09:32 Monocytes # 0.4 k/uL (0-1.0) 01/25/21 09:32 Eosinophils # 0.2 k/uL (0-0.7) 01/25/21 09:32 Basophils # 0.0 k/uL (0-0.2) 01/25/21 09:32 Sodium 139 mmol/L (137-145) 01/25/21 09:32 Potassium 4.4 mmol/L (3.5-5.1) 01/25/21 09:32 Chloride 104 mmol/L (98-107) 01/25/21 09:32 Carbon Dioxide 27 mmol/L (22-30) 01/25/21 09:32 Anion Gap 8 mmol/L 01/25/21 09:32 BUN 19 mg/dL (9-20) 01/25/21 09:32 Creatinine 0.64 mg/dL (0.66-1.25) L 01/25/21 09:32 Est GFR (CKD-EPI)AfAm >90 (>60 ml/min/1.73 sqM) 01/25/21 09:32 Est GFR (CKD-EPI)NonAf >90 (>60 ml/min/1.73 sqM) 01/25/21 09:32 Glucose 111 mg/dL (74-99) H 01/25/21 09:32 Calcium 9.2 mg/dL (8.4-10.2) 01/25/21 09:32 Total Bilirubin 0.5 mg/dL (0.2-1.3) 01/25/21 09:32 AST 30 U/L (17-59) 01/25/21 09:32 ALT 21 U/L (4-49) 01/25/21 09:32 Alkaline Phosphatase 85 U/L (38-126) 01/25/21 09:32 Total Protein 6.6 g/dL (6.3-8.2) 01/25/21 09:32 Albumin 4.1 g/dL (3.5-5.0) 01/25/21 09:32 Triglycerides 75 mg/dL (<150) 01/25/21 09:32 Cholesterol 145 mg/dL (<200) 01/25/21 09:32 LDL Cholesterol, Calc 48 mg/dL (0-99) 01/25/21 09:32 HDL Cholesterol 82 mg/dL (40-60) H 01/25/21 09:32 TSH 1.530 mIU/L (0.465-4.680) 01/25/21 09:32 Urine Color Light Yellow 01/25/21 00:01 Urine Appearance Clear (Clear) 01/25/21 00:01 Urine pH 6.0 (5.0-8.0) 01/25/21 00:01 Ur Specific [place] 1.013 (1.001-1.035) 01/25/21 00:01 Urine Protein Negative (Negative) 01/25/21 00:01 Urine Glucose (UA) Negative (Negative) 01/25/21 00:01 Urine Ketones Negative (Negative) 01/25/21 00:01 Urine Blood Negative (Negative) 01/25/21 00:01 Urine Nitrite Negative (Negative) 01/25/21 00:01 Urine Bilirubin Negative (Negative) 01/25/21 00:01 Urine Urobilinogen <2.0 mg/dL (<2.0) 01/25/21 00:01 Ur Leukocyte Esterase Negative (Negative) 01/25/21 00:01 Urine Opiates Screen Negative ng/mL (Negative) 01/25/21 00:01 Ur Oxycodone Screen Not Detected (NotDetected) 01/24/21 18:03 Urine Methadone Screen Negative ng/mL (Negative) 01/25/21 00:01 Ur Propoxyphene Screen Negative ng/mL (Negative) 01/25/21 00:01 Ur Barbiturates Screen Not Detected (NotDetected) 01/24/21 18:03 Urine Barbiturates Negative ng/mL (Negative) 01/25/21 00:01 U Tricyclic Antidepress Detected (NotDetected) H 01/24/21 18:03 Ur Phencyclidine Scrn Negative ng/mL (Negative) 01/25/21 00:01 Ur Amphetamine Screen Negative ng/mL (Negative) 01/25/21 00:01 Ur Amphetamines Screen Not Detected (NotDetected) 01/24/21 18:03 U Methamphetamines Scrn Not Detected (NotDetected) 01/24/21 18:03 U Benzodiazepines Scrn Negative ng/mL (Negative) 01/25/21 00:01 Urine Cocaine Screen Positive ng/mL (Negative) A 01/25/21 00:01 U Cannabinoids Screen Positive ng/mL (Negative) A 01/25/21 00:01 U Marijuana (THC) Screen Detected (NotDetected) H 01/24/21 18:03 Urine Alcohol Positive mg/dL (Negative) A 01/25/21 00:01 Serum Alcohol 157 mg/dL 01/24/21 18:46 Coronavirus (PCR) Not Detected (Not Detectd) 01/25/21 00:56 01/25/21 15:03 Chief complaint: Patient stated they got me from his house. He stated the police officers came to his house because he missed his appointment. He stated he is on a court order for treatment. He stated his court order runs through June [facility] at [facility] in the outpatient. History of present illness: He stated he has no history of mental illness. He stated he had an accident at work. He stated he was working in [employer] shop. He stated at that particular time he went through a period where he was having hallucinations etc. and so he was placed on a treatment order at the [facility] which he did not keep his appointments for. He stated he does not take any medications through [facility]. He stated he doesn't drink alcohol and only had couple of drinks yesterday before he was picked up by police. He stated that he does not drink every day but just drinks a beer or 2 on a periodic basis but was not clear how much of alcohol does he usually drink. Past history: he stated he was in the psychiatric hospital one time in November of this year. He stated the reason he was in psychiatric unit was because he made the statements which doctors thought were too far fetched to be true. He stated that he was picking stuff out of air. He stated he was told that he was hallucinating. He stated he does not believe that was hallucinations. Family history: He stated he lives all by himself. He stated his mother used to live there at one time. He denies any history of mental illness or suicide in the family. He stated he started drinking alcohol when he was 15 or 16 years of age. He stated at that time he was drinking alcohol heavily. He was sent to a rehabilitation program for 28 days in some psychiatric hospital at that particular time. Medical history he stated he has a history of high blood pressure and atrial fibrillation and he takes medications for that. He stated he is on multiple medical medications which were ordered for him. Social history: He stated he went to school up until 11th grade and reportedly was on. 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 He stated he has 1 son. He denied ever being . He further stated that that he has a step son and 2 daughters. He denies any history of mental illness or suicide in the family. Substance abuse history: He has history of alcohol, marijuana, speed and cocaine in the past. He stated he only has been drinking alcohol lately. Legal history: He stated the only problem he has is the one he is struggling a bit he denies any history of other legal problems. ALLERGIES: He stated he is ALLERGIC to Benadryl which makes him itch. Mental status examination: This patient is alert and oriented to time place and person his appearance is a shaggy and he appears disheveled. He was quite evasive and did not want to answer the questions asked of him. He stated his mood is " tired" and his affect appears depressed. He denies any hallucinations or delusions at this time. He does not have any loose associations flight of ideas or any other disorder of thought process. His formal judgment appears up fine but his functional judgment is certainly impaired his impulse control is poor his abstract reasoning is a fair and he has no insight into his problems. His cognitive and other memory functions are normal. 01/25/21 15:24 Diagnostic impression: Psychotic disorder not otherwise specified Alcohol dependence in partial remission Hypertension History of atrial fibrillation Treatment plan: He will be maintained on his medications: he will be maintained in the milieu and encouraged to participate in unit activities.
[2021-01-25] MEDS: AMITRIPTYLINE HCL 50 MG TAB PO SCH (20:58)
[2021-01-25] MEDS: ATORVASTATIN 10 MG TAB PO SCH (20:58)
[2021-01-25 22:04] LABS: Hemoglobin A1C 5.5 % (4.0-6.0)
--- NOTE | 2021-01-26 03:21 | P.MDCNMH ---
History of Present Illness H&P Date: 01/25/21 Chief Complaint: medical evaluation 55 year old male with history of psychosis , HTN, afib patient brought to the hospital by police order for acute psychosis and medical non compliance. patient denies alcohol use , but admits to smoking and marijuana he denies any suicidal or homicidal ideation patient denies any medical concerns , however, he does report some abd dis comfort for the past 3 months , associated with frequent small bowel movement, dark at times, denies any nausea or vomiting , denies any changes with urination , he reports discomfort over left upper quadrant not related to food or activity, he currently denies any discomfort. he denies any fever, chills, trouble breathing, chest pain blood work unremarkable Review of Systems Pertinent positives as noted in HPI. All other systems were reviewed and are negative Past Medical History Past Medical History: Atrial Fibrillation, Hypertension Additional Past Medical History / Comment(s): migranes History of Any Multi-Drug Resistant Organisms: None Reported Past Surgical History: Ablation Additional Past Surgical History / Comment(s): Ablasion for AFIB. Past Psychological History: Depression Smoking Status: Current every day smoker Past Alcohol Use History: Daily Past Drug Use History: Cocaine, Marijuana - Past Family History Mother Family Medical History: No Reported History family Family Medical History: No Reported History Medications and Allergies Home Medications Medication Instructions Recorded Confirmed Type Albuterol Inhaler [Ventolin Hfa 2 puff INHALATION RT-Q6H PRN 30 12/12/20 01/25/21 Rx Inhaler] Days puff Amitriptyline HCl [Elavil] 50 mg PO HS 30 Days tab 12/12/20 01/25/21 Rx Gabapentin [Neurontin] 300 mg PO BID PRN 30 Days cap 12/12/20 01/25/21 Rx Metoprolol Succinate (ER) [Toprol 100 mg PO DAILY 30 Days tab.er.24h 12/12/20 01/25/21 Rx XL] ALPRAZolam [Xanax] 0.5 mg PO BID PRN 01/24/21 01/25/21 History Cyclobenzaprine [Flexeril] 5 mg PO TID PRN 01/24/21 01/25/21 History Simvastatin [Zocor] 20 mg PO HS 01/24/21 01/25/21 History Spironolactone [Aldactone] 12.5 mg PO DAILY 01/24/21 01/25/21 History Allergies Allergy/AdvReac Type Severity Reaction Status Date / Time diphenhydramine HCl Allergy Itching Verified 01/25/21 01:27 [From Christopher] Physical Exam Vitals: Vital Signs Temp Pulse Pulse Resp BP BP Pulse Ox 01/25/21 09:32 98.0 F 87 20 122/83 99 01/25/21 02:19 97.9 F 72 16 136/84 100 Constitutional: No acute distress, conversant, pleasant Eyes: Anicteric sclerae, moist conjunctiva, Pupils equal round reactive to light ENMT: NC/AT Oropharynx clear, no erythema, or exudates Neck: Supple, FROM, no masses, or JVD No carotid bruits No thyromegaly Lungs: Clear to auscultation Clear to percussion Normal respiratory effort, no accessory muscle use Cardiovascular: Heart regular in rate and rhythm, No murmurs, gallops, or rubs No peripheral edema Abdominal: Soft discomort to deep palpation no guarding, rebound or rigidity Abdomen moving with respiration Normoactive bowel sounds No hepatomegaly, No splenomegaly No palpable mass No abdominal wall hernia noted Skin: Normal temperature, tone, texture, turgor No induration No subcutaneous nodules No rash, lesions No ulcers Extremities: No digital cyanosis No clubbing Pedal pulses intact and symmetrical Radial pulses intact and symmetrical No calf tenderness Psychiatric: Alert and oriented to person, place and time Appropriate affect fair judgement Neuro Muscles Strength 5/5 in all 4 extremities Sensation to light touch grossly present throughout Cranial nerves II-XII grossly intact No focal sensory deficits Lymphatics: no palpable cervical or supraclavicular , or inguinal lymph nodes Cranial Nerve Examination - Cranial Nerves Cranial Nerve II- Optic: Intact Cranial Nerve III- Oculomotor: Intact Cranial Nerve IV- Trochlear: Intact Cranial Nerve V- Trigeminal: Intact Cranial Nerve - Abducens: Intact Cranial Nerve VII- Facial: Intact Cranial Nerve VIII- Auditory: Intact Cranial Nerve IX- Glossopharyngeal: Intact Cranial Nerve X- Vagus: Intact Cranial Nerve XI- Accessory: Intact Cranial Nerve XII- Hypoglossal: Intact Results CBC & Chem 7: 01/25/21 09:32 01/25/21 09:32 Labs: Abnormal Lab Results - Last 24 Hours (Table) 01/25/21 01/25/21 Range/Units 00:01 09:32 Creatinine 0.64 L (0.66-1.25) mg/dL Glucose 111 H (74-99) mg/dL HDL Cholesterol 82 H (40-60) mg/dL Urine Cocaine Screen Positive A (Negative) ng/mL U Cannabinoids Screen Positive A (Negative) ng/mL Urine Alcohol Positive A (Negative) mg/dL Assessment and Plan Assessment: acute psychosis management per psych chronic conditions hypertension afib resume homemeds left upper quadrant discomfort , chronic consider OP follow up check occult blood test , patient reported dark BM Thank you for allowing us to participate in the care of this patient. We will follow peripherally. Do not hesitate to contact us with questions. Someone can be reached from the [facility] hospitalist group at all hours of the day at [phone].
[2021-01-26] MEDS: METOPROLOL SUCCINATE (ER) 100 MG TAB.ER.24H PO SCH (08:07)
[2021-01-26] MEDS: NICOTINE 14MG/24HR PATCH TRANSDERM SCH (08:08)
[2021-01-26] MEDS: SPIRONOLACTONE 25 MG TAB PO SCH (08:08)
--- NOTE | 2021-01-26 13:08 | P.PN ---
Progress Note - Text Progress Note Date: 01/26/21 This patient is lying quietly in bed and told me that he does not need to be here. He stated he does not have any mental health problems at this time.He stated the police officers came to his house because he missed his appointment. He stated he is on a court order for treatment. He stated his court order runs through June 10 at [facility] in the outpatient. He stated he wants to go on with his life. He however is withdrawn, passive and has psychomotor retardation. He has no insight into his problems. He is unable to relate his tactile hallucinations but his alcohol consumption. He will continue to be encouraged to participate in unit activities.
[2021-01-26] MEDS: AMITRIPTYLINE HCL 50 MG TAB PO SCH (20:47)
[2021-01-26] MEDS: ATORVASTATIN 10 MG TAB PO SCH (20:47)
[2021-01-26] MEDS: GABAPENTIN 300 MG CAP PO PRN (20:48)
[2021-01-27] MEDS: GABAPENTIN 300 MG CAP PO PRN (01:31)
[2021-01-27] MEDS: ACETAMINOPHEN TAB 325 MG TAB PO PRN (01:31)
[2021-01-27] MEDS: METOPROLOL SUCCINATE (ER) 100 MG TAB.ER.24H PO SCH (07:55)
[2021-01-27] MEDS: NICOTINE 14MG/24HR PATCH TRANSDERM SCH (07:55)
[2021-01-27] MEDS: SPIRONOLACTONE 25 MG TAB PO SCH (07:56)
--- NOTE | 2021-01-27 11:38 | P.PN ---
Progress Note - Text Progress Note Date: 01/27/21 Interval History: Patient was seen wandering the hallways and was directable and agreeable to sp eak with newspaper writer in the office. Patient was attending to cooperate with newspaper writer during conversation. He appeared to have fluent speech and claims that his anxiety and mood have been gradually improving since being on the unit. He did not understand that Elavil was a psychiatric medication however was denying being noncompliant with his other medications. He claims that he did not return the phone calls back to [facility] and came to the hospital on a pickup order from the police. He claims that he also has been drinking alcohol more recently however is denying any withdrawal symptoms at this time. He states that he sleeps approximately 4-5 hours a night and was agreeable to take melatonin tonight. He claims that he is agreeable to take medications while being on the unit. He states that he will try to go to groups today.. At this time patient denies any suicidal or homical ideations, intent or plan. Patient denies any auditory, visual hallucinations and denies any paranoia or delusions. Patient denies any side effects from the medications and has been compliant with meds. Mental Status Exam: General Appearance: Patient appears to be tall, stated age is alert, directable, and attempts to be cooperative. Poor hygiene and grooming. Behavior: Patient is calmly seated without any agitated behavior. Rambles at times. Speech: Patient's speech is fluent and nonpressured. Mood/Affect: Mood is depressed and anxious however improving mildly, affect is congruent Suicidality/Homicidality: Patient denies having any suicidal or homicidal ideation intent or plan. Perceptions: Patient denies any visual hallucinations and denies any auditory hallucinations Though content/process: Tangential at times, rambles. Logical. Focused on his medications and discharge. Memory and concentration: AOX3, grossly intact for the purposes of this session Judgment and insight: Poor, Improving mildly Assessment Depressive disorder unspecified Alcohol abuse Cocaine use disorder Cannabis use disorder Nicotine dependence Plan: -Patient continues to meet criteria for inpatient psychiatric admission for symptom stabilization and safety. Patient has signed medication consent and was placed in patient's chart. -Medications: Continue with Elavil 50 mg daily at bedtime for mood/anxiety. I added melatonin 3 mg daily at bedtime for insomnia. -When necessary Ativan and Haldol for agitation/aggression. -NRT - nicotine patch -SW on board for discharge planning. Encouraged the patient to participate in milieu. Patient was previously on a deferral which was signed on 12/12/20 and apparently patient has not been following up with [facility] or taking his medications and presented this admission on a pickup order. Will likely need to file a demand for hearing.
[2021-01-27] MEDS: AMITRIPTYLINE HCL 50 MG TAB PO SCH (20:14)
[2021-01-27] MEDS: ATORVASTATIN 10 MG TAB PO SCH (20:14)
[2021-01-28] MEDS: SPIRONOLACTONE 25 MG TAB PO SCH (08:03)
[2021-01-28] MEDS: NICOTINE 14MG/24HR PATCH TRANSDERM SCH (08:03)
[2021-01-28] MEDS: METOPROLOL SUCCINATE (ER) 100 MG TAB.ER.24H PO SCH (08:04)
--- NOTE | 2021-01-28 10:52 | P.PN ---
Progress Note - Text Progress Note Date: 01/28/21 Interval History: Patient was seen wandering the hallways and was directable and agreeable to sp eak with typewriter ribbon winder in the office. Patient was attending to cooperate with typewriter ribbon winder during conversation. Today he claims that his anxiety and mood have been gradually improving and did not offer any overnight complaints. He claims that he will try and stay in contact with [facility] once he leaves the hospital. He repeatedly reassured typewriter ribbon winder that he has been taking his Elavil however stated that it probably wasnt documented because he has been getting it filled through his PCP. He continues to minimize his drug use specifically his alcohol use. He states that he does not need help at this time and can stop on his own and is declining rehab. He states that he sleeps approximately 5 hours a night. He claims that he is agreeable to take medications while being on the unit. He states that he has not been going to groups and does not feel that it interest him. She did speak about wanting to sign a waive and stip through his commonwealth attorney. At this time patient denies any suicidal or homical ideations, intent or plan. Patient denies any auditory, visual hallucinations and denies any paranoia or delusions. Patient denies any side effects from the medications and has been compliant with meds. Mental Status Exam: General Appearance: Patient appears to be tall, stated age is alert, directable, and attempts to be cooperative. Improving hygiene and grooming. Behavior: Patient is calmly seated without any agitated behavior. Rambles at times. Speech: Patient's speech is fluent and nonpressured. Mood/Affect: Mood is improving mildly, affect is congruent and constricted Suicidality/Homicidality: Patient denies having any suicidal or homicidal ideation intent or plan. Perceptions: Patient denies any visual hallucinations and denies any auditory hallucinations Though content/process: Tangential at times, rambles, improving mildly. Logical. Focused on his discharge. Memory and concentration: AOX3, grossly intact for the purposes of this session Judgment and insight: Improving mildly Assessment: Depressive disorder unspecified Alcohol abuse Cocaine use disorder Cannabis use disorder Nicotine dependence Plan: -Patient continues to meet criteria for inpatient psychiatric admission for symptom stabilization and safety. Patient has signed medication consent and was placed in patient's chart. -Medications: Continue with Elavil 50 mg daily at bedtime for mood/anxiety. continue with melatonin 3 mg daily at bedtime for insomnia. -When necessary Ativan and Haldol for agitation/aggression. -NRT - nicotine patch -SW on board for discharge planning. Encouraged the patient to participate in milieu. Patient is declining rehab for subtance abuse at this time. Demand hearing set for 02/12/21. Patient is willing to sign a waive and stip, likely later on today.
[2021-01-28] MEDS: ATORVASTATIN 10 MG TAB PO SCH (20:52)
[2021-01-28] MEDS: AMITRIPTYLINE HCL 50 MG TAB PO SCH (20:52)
[2021-01-28] MEDS: GABAPENTIN 300 MG CAP PO PRN (20:55)
[2021-01-28] MEDS: ACETAMINOPHEN TAB 325 MG TAB PO PRN (20:55)
[2021-01-28] MEDS ORDERED: MELATONIN 3 MG TABLET PO SCH (21:00)
[2021-01-29 06:38] VITALS: BP 124/73; PULSE 71; RESP 16; TEMP 97.5
[2021-01-29] MEDS: METOPROLOL SUCCINATE (ER) 100 MG TAB.ER.24H PO SCH (08:30)
[2021-01-29] MEDS: NICOTINE 14MG/24HR PATCH TRANSDERM SCH (08:30)
[2021-01-29] MEDS: SPIRONOLACTONE 25 MG TAB PO SCH (08:31)
--- NOTE | 2021-01-29 09:48 | P.DS ---
Providers Date of admission: 01/25/21 00:35 Expected date of discharge: 01/29/21 Attending physician: Tato Zhang MD Consults: 01/25/21 00:43 Consult Physician Routine Consulting Provider: Quincy Banerjee Consult Reason/Comments: For H & P for Medical Follow Up Do you want consulting provider notified?: Yes Primary care physician: Ranjeet Chavis Kut - Discharge Diagnosis(es) (1) Depressive disorder Current Visit: Yes Status: Acute Priority: High (2) Alcohol abuse Current Visit: Yes Status: Acute Priority: Medium (3) Cocaine abuse Current Visit: Yes Status: Acute Priority: Medium (4) Cannabis use disorder, mild, abuse Current Visit: Yes Status: Acute Priority: Medium (5) Nicotine dependence Current Visit: Yes Status: Acute Priority: Low Hospital Course: Admission HPI: Admission note was completed by Dr. Clemente "Patient stated they got me from his house. He stated the police officers came to his house because he missed his appointment. He stated he is on a court order for treatment. He stated his court order runs through June 10 at [facility] in the outpatient. He stated he has no history of mental illness. He stated he had an accident at work. He stated he was working in [employer]. He stated at that particular time he went through a period where he was having hallucinations etc. and so he was placed on a treatment order at the [facility] which he did not keep his appointments for. He stated he does not take any medications through [facility]. He stated he doesn't drink alcohol and only had couple of drinks yesterday before he was picked up by police. He stated that he does not drink every day but just drinks a beer or 2 on a periodic basis but was not clear how much of alcohol does he usually drink. He stated he was in the psychiatric hospital one time in November of this year. He stated the reason he was in psychiatric unit was because he made the statements which doctors thought were too far fetched to be true. He stated that he was picking stuff out of air. He stated he was told that he was hallucinating. He stated he does not believe that was hallucinations." Hospital course: Upon admission to the unit patient was initially on a pickup order for noncompliance however was directable and agreeable to commence treatment while on the unit. Patient was previously on a deferral and a demand for hearing was filed. Patient ended up signing a waive and stip with his claim attorney on 01/28/21. Patient got along well with other patients on the unit and followed unit protocol. Patient was compliant with the medications and denied any side effects throughout hospital course. Patient was started on his home dose of Elavil 50 mg daily at bedtime for mood/anxiety. Patient was also started on melatonin 3 mg daily at bedtime for insomnia. Patient spoke of his stressors and engaged in therapy both group and individual. Patient was also seen by medical team for history and physical exam. Throughout the course of the hospitalization patient gradually improved with regards to mood, anxiety, sleep and became more future oriented with improved insight and judgment. On the day of discharge patient denied any suicidal or homicidal ideations intent or plan denied any auditory or visual hallucinations. Patient endorsed wanting to live for his future and family. The patient denied any access to guns or weapons. Patient denied any paranoia and did not endorse any delusions. Patient does have a significant history of substance abuse and was counseled on abstaining from all substances including alcohol and marijuana. Patient was offered however declined inpatient substance-abuse rehab. Patient elected to do outpatient substance use treatment program through [facility]. Patient was also counseled on the medications and need for regular compliance and was encouraged to follow-up with their outpatient appointment for mental health and also for primary care. Prior to discharge a family meeting will be arranged by psych social worker to answer any questions and ensure safety upon discharge. Mental status exam: General Appearance: Patient appears to be thin, stated age is alert, directable, and cooperative. Patient is in no acute distress and has improved hygiene and grooming Behavior: Patient is calmly seated without any agitated behavior. Speech: Patient's speech is fluent and nonpressured. Mood/Affect: Patient reports their mood is "ok", affect is congruent Suicidality/Homicidality: Patient denies having any suicidal or homicidal ideation intent or plan. Perceptions: Patient denies any auditory or visual hallucinations. Though content/process: There is no evidence of any delusional thought content and thought process is linear and goal-directed. more future oriented Memory and concentration: AOX3, grossly intact for the purposes of this session. Can spell "WORLD" backwards correctly. Judgment and insight: chronically poor, however has improved with guarded prognosis Impression: Depressive disorder unspecified Alcohol abuse Cocaine use disorder Cannabis use disorder Nicotine dependence Plan: -Continue with discharge today as patient has improved and stabilized psychiatrically and is not currently an imminent threat to himself and/or others. Patient will remain at chronically elevated risk for harm to self and/or others due to his chronically poor insight/judgment and polysubstance abuse. -Continue medications: Elavil 50 mg daily at bedtime for mood/anxiety, melatonin 3 mg daily at bedtime for insomnia. -Patient was counseled on the need for medication compliance and appropriate follow-up at mental health and also primary care for medical issues. Patient verbalized understanding and agreed. -Social work to arrange for and conduct family meeting to ensure safety upon discharge and answer any questions/concerns. Social work also to arrange for patients follow up appointments with [facility] for psychiatric care along with follow up with primary care provider. -Patient ended up signing a waive and stip with his claim attorney and agreeing to the treatment order on 01/28/21. -Patient counseled on abstaining from recreational drugs and marijuana and alcohol. Was informed/educated on the adverse effects on their physical and mental health. Patient verbally agreed and understood. Patient was offered substance abuse treatment however declined at this time. -Patient was instructed to return to the hospital or seek immediate medical care if their psychiatric or medical symptoms do worsen or reoccur. Allergies Allergy/AdvReac Type Severity Reaction Status Date / Time diphenhydramine HCl Allergy Itching Verified 01/25/21 01:27 [From Benadryl] Laboratory Results WBC 7.1 k/uL (3.8-10.6) 01/25/21 09:32 RBC 4.47 m/uL (4.30-5.90) 01/25/21 09:32 Hgb 14.3 gm/dL (13.0-17.5) 01/25/21 09:32 Hct 43.7 % (39.0-53.0) 01/25/21 09:32 MCV 97.7 fL (80.0-100.0) 01/25/21 09:32 MCH 32.0 pg (25.0-35.0) 01/25/21 09:32 MCHC 32.7 g/dL (31.0-37.0) 01/25/21 09:32 RDW 14.8 % (11.5-15.5) 01/25/21 09:32 Plt Count 216 k/uL (150-450) 01/25/21 09:32 MPV 8.0 01/25/21 09:32 Neutrophils % 70 % 01/25/21 09:32 Lymphocytes % 19 % 01/25/21 09:32 Monocytes % 6 % 01/25/21 09:32 Eosinophils % 3 % 01/25/21 09:32 Basophils % 1 % 01/25/21 09:32 Neutrophils # 5.0 k/uL (1.3-7.7) 01/25/21 09:32 Lymphocytes # 1.3 k/uL (1.0-4.8) 01/25/21 09:32 Monocytes # 0.4 k/uL (0-1.0) 01/25/21 09:32 Eosinophils # 0.2 k/uL (0-0.7) 01/25/21 09:32 Basophils # 0.0 k/uL (0-0.2) 01/25/21 09:32 Sodium 139 mmol/L (137-145) 01/25/21 09:32 Potassium 4.4 mmol/L (3.5-5.1) 01/25/21 09:32 Chloride 104 mmol/L (98-107) 01/25/21 09:32 Carbon Dioxide 27 mmol/L (22-30) 01/25/21 09:32 Anion Gap 8 mmol/L 01/25/21 09:32 BUN 19 mg/dL (9-20) 01/25/21 09:32 Creatinine 0.64 mg/dL (0.66-1.25) L 01/25/21 09:32 Est GFR (CKD-EPI)AfAm >90 (>60 ml/min/1.73 sqM) 01/25/21 09:32 Est GFR (CKD-EPI)NonAf >90 (>60 ml/min/1.73 sqM) 01/25/21 09:32 Glucose 111 mg/dL (74-99) H 01/25/21 09:[address] Glu mg/dL 111 01/25/21 09:32 Hemoglobin A1c 5.5 % (4.0-6.0) 01/25/21 09:32 Calcium 9.2 mg/dL (8.4-10.2) 01/25/21 09:32 Total Bilirubin 0.5 mg/dL (0.2-1.3) 01/25/21 09:32 AST 30 U/L (17-59) 01/25/21 09:32 ALT 21 U/L (4-49) 01/25/21 09:32 Alkaline Phosphatase 85 U/L (38-126) 01/25/21 09:32 Total Protein 6.6 g/dL (6.3-8.2) 01/25/21 09:32 Albumin 4.1 g/dL (3.5-5.0) 01/25/21 09:32 Triglycerides 75 mg/dL (<150) 01/25/21 09:32 Cholesterol 145 mg/dL (<200) 01/25/21 09:32 LDL Cholesterol, Calc 48 mg/dL (0-99) 01/25/21 09:32 HDL Cholesterol 82 mg/dL (40-60) H 01/25/21 09: TSH 1.530 mIU/L (0.465-4.680) 01/25/21 09:32 Urine Color Light Yellow 01/25/21 00:01 Urine Appearance Clear (Clear) 01/25/21 00:01 Urine pH 6.0 (5.0-8.0) 01/25/21 00:01 Ur Specific [place] 1.013 (1.001-1.035) 01/25/21 00:01 Urine Protein Negative (Negative) 01/25/21 00:01 Urine Glucose (UA) Negative (Negative) 01/25/21 00:01 Urine Ketones Negative (Negative) 01/25/21 00:01 Urine Blood Negative (Negative) 01/25/21 00:01 Urine Nitrite Negative (Negative) 01/25/21 00:01 Urine Bilirubin Negative (Negative) 01/25/21 00:01 Urine Urobilinogen <2.0 mg/dL (<2.0) 01/25/21 00:01 Ur Leukocyte Esterase Negative (Negative) 01/25/21 00:01 Urine Opiates Screen Negative ng/mL (Negative) 01/25/21 00:01 Ur Oxycodone Screen Not Detected (NotDetected) 01/24/21 18:03 Urine Methadone Screen Negative ng/mL (Negative) 01/25/21 00:01 Ur Propoxyphene Screen Negative ng/mL (Negative) 01/25/21 00:01 Ur Barbiturates Screen Not Detected (NotDetected) 01/24/21 18:03 Urine Barbiturates Negative ng/mL (Negative) 01/25/21 00:01 U Tricyclic Antidepress Detected (NotDetected) H 01/24/21 18:03 Ur Phencyclidine Scrn Negative ng/mL (Negative) 01/25/21 00:01 Ur Amphetamine Screen Negative ng/mL (Negative) 01/25/21 00:01 Ur Amphetamines Screen Not Detected (NotDetected) 01/24/21 18:03 U Methamphetamines Scrn Not Detected (NotDetected) 01/24/21 18:03 U Benzodiazepines Scrn Negative ng/mL (Negative) 01/25/21 00:01 Urine Cocaine Screen Positive ng/mL (Negative) A 01/25/21 00:01 U Cannabinoids Screen Positive ng/mL (Negative) A 01/25/21 00:01 U Marijuana (THC) Screen Detected (NotDetected) H 01/24/21 18:03 Urine Alcohol Positive mg/dL (Negative) A 01/25/21 00:01 Serum Alcohol 157 mg/dL 01/24/21 18:46 Coronavirus (PCR) Not Detected (Not Detectd) 01/25/21 00:56 Vital Signs Temp 97.5 F L 01/29/21 06:20 Pulse 71 01/29/21 06:20 Resp 16 01/29/21 06:20 BP 124/73 01/29/21 06:20 Pulse Ox 99 01/25/21 09:32 Patient Condition at Discharge: Stable Plan - Discharge Summary New Discharge Prescriptions: New Amitriptyline HCl [Elavil] 50 mg PO HS 30 Days tab Nicotine 14Mg/24Hr Patch [Habitrol] 1 patch TRANSDERM DAILY 14 Days patch Melatonin 3 mg PO HS 30 Days tablet Acetaminophen Tab [Tylenol] 650 mg PO Q4HR PRN tab PRN Reason: Pain/Discomfort Continue Gabapentin [Neurontin] 300 mg PO BID PRN 30 Days cap PRN Reason: Headache Metoprolol Succinate (ER) [Toprol XL] 100 mg PO DAILY 30 Days tab.er.24h Albuterol Inhaler [Ventolin Hfa Inhaler] 2 puff INHALATION RT-Q6H PRN 30 Days puff PRN Reason: Shortness Of Breath Simvastatin [Zocor] 20 mg PO HS Spironolactone [Aldactone] 12.5 mg PO DAILY Cyclobenzaprine [Flexeril] 5 mg PO TID PRN PRN Reason: Pain Discontinued Amitriptyline HCl [Elavil] 50 mg PO HS 30 Days tab ALPRAZolam [Xanax] 0.5 mg PO BID PRN PRN Reason: Anxiety Discharge Medication List Albuterol Inhaler [Ventolin Hfa Inhaler] 2 puff INHALATION RT-Q6H PRN 30 Days puff 12/12/20 [Rx] Gabapentin [Neurontin] 300 mg PO BID PRN 30 Days cap 12/12/20 [Rx] Metoprolol Succinate (ER) [Toprol XL] 100 mg PO DAILY 30 Days tab.er.24h 12/12/20 [Rx] Cyclobenzaprine [Flexeril] 5 mg PO TID PRN 01/24/21 [History] Simvastatin [Zocor] 20 mg PO HS 01/24/21 [History] Spironolactone [Aldactone] 12.5 mg PO DAILY 01/24/21 [History] Acetaminophen Tab [Tylenol] 650 mg PO Q4HR PRN tab 01/29/21 [Rx] Amitriptyline HCl [Elavil] 50 mg PO HS 30 Days tab 01/29/21 [Rx] Melatonin 3 mg PO HS 30 Days tablet 01/29/21 [Rx] Nicotine 14Mg/24Hr Patch [Habitrol] 1 patch TRANSDERM DAILY 14 Days patch 01/29/21 [Rx] Follow up Appointment(s)/Referral(s): [facility] [Outside] - 01/31/21 9:30 am (01-31-21 @ 9:30 with Ministerio Mccray at [facility] office 02-06-21 @ 10:[address] Cha at [facility] office) Ranjeet Cano MD [Primary Care Provider] - 1-2 days Activity/Diet/Wound Care/Special Instructions: Activity and diet as tolerated. Avoid the use of street drugs and alcohol. Take all medications as prescribed. When you are in need of refills on your medications please contact your medical provider and/or outpatient psychiatrist to have this done. Please go to scheduled outpatient appointment for aftercare treatment. If symptoms return or become worse, call the crisis line at and/or go to the nearest emergency room for evaluation. Discharge Disposition: HOME SELF-CARE
== END 2021-01-29 13:55 | disposition home or self-care (01) | DRG 885 ==
LOC: EC 16:18 → 3MHU 01-25 00:35
PROVIDERS: ADMIT Psychiatry & Neurology Psychiatry; ATTEND Psychiatry & Neurology Psychiatry
DX: F32.3 Major depressive disorder, single episode, severe with psychotic features (principal); Z91.19 Patient's noncompliance with other medical treatment and regimen; F10.20 Alcohol dependence, uncomplicated; F14.10 Cocaine abuse, uncomplicated; Z20.822 Contact with and (suspected) exposure to COVID-19; F12.10 Cannabis abuse, uncomplicated; F41.9 Anxiety disorder, unspecified; G47.00 Insomnia, unspecified; I10 Essential (primary) hypertension; F17.210 Nicotine dependence, cigarettes, uncomplicated; Z71.6 Tobacco abuse counseling; Z79.899 Other long term (current) drug therapy; Z86.79 Personal history of other diseases of the circulatory system; Z98.890 Other specified postprocedural states; Z88.8 Allergy status to other drugs, medicaments and biological substances
CPT/HCPCS: 36415; 80053; 80061; 80306; 80320; 81003; 82075; 83036; 84443; 85025; 87635; 99284; 99285

== ENCOUNTER 2021-04-03 21:26 | Emergency (ER) | payer OTHER ==
[2021-04-03 21:31] VITALS: BP 120/81; RESP 18; TEMP 98
--- NOTE | 2021-04-03 22:38 | ED ---
Psych HPI - General Chief Complaint: Psychiatric Symptoms Stated Complaint: Petition Time Seen by Provider: 04/03/21 22:13 Source: police Mode of arrival: ambulatory - Related Data Home Medications Medication Instructions Recorded Confirmed Cyclobenzaprine [Flexeril] 5 mg PO TID PRN 01/24/21 01/25/21 Simvastatin [Zocor] 20 mg PO HS 01/24/21 01/25/21 Spironolactone [Aldactone] 12.5 mg PO DAILY 01/24/21 01/25/21 Previous Rx's Medication Instructions Recorded Albuterol Inhaler [Ventolin Hfa 2 puff INHALATION RT-Q6H PRN 30 12/12/20 Inhaler] Days puff Gabapentin [Neurontin] 300 mg PO BID PRN 30 Days cap 12/12/20 Metoprolol Succinate (ER) [Toprol 100 mg PO DAILY 30 Days tab.er.24h 12/12/20 XL] Acetaminophen Tab [Tylenol] 650 mg PO Q4HR PRN tab 01/29/21 Amitriptyline HCl [Elavil] 50 mg PO HS 30 Days tab 01/29/21 Melatonin 3 mg PO HS 30 Days tablet 01/29/21 Nicotine 14Mg/24Hr Patch [Habitrol] 1 patch TRANSDERM DAILY 14 Days 01/29/21 patch Allergies Allergy/AdvReac Type Severity Reaction Status Date / Time diphenhydramine HCl Allergy Itching Verified 04/03/21 21:28 [From Christopher] Review of Systems ROS Statement: Those systems with pertinent positive or pertinent negative responses have been documented in the HPI. ROS Other: All systems not noted in ROS Statement are negative. Past Medical History Past Medical History: Atrial Fibrillation, Hypertension Additional Past Medical History / Comment(s): migranes History of Any Multi-Drug Resistant Organisms: None Reported Past Surgical History: Ablation Additional Past Surgical History / Comment(s): Ablasion for AFIB. Past Psychological History: Anxiety Smoking Status: Current every day smoker Past Alcohol Use History: Daily Past Drug Use History: Marijuana - Past Family History Mother Family Medical History: No Reported History family Family Medical History: No Reported History General Exam Limitations: no limitations Course Vital Signs 04/03/21 21:28 Temperature 98.0 F Pulse Rate 105 H Respiratory 18 Rate Blood Pressure 120/81 O2 Sat by Pulse 97 Oximetry Disposition Clinical Impression: Alcohol abuse, Acute psychosis Disposition: HOME SELF-CARE Condition: Fair Instructions (If sedation given, give patient instructions): Abuse of Alcohol (ED) Is patient prescribed a controlled substance at d/c from ED?: No Referrals: Ranjeet Cano MD [Primary Care Provider] - 1-2 days
[2021-04-04 01:19] VITALS: PULSE 98
== END 2021-04-04 01:18 | disposition home or self-care (01) ==
LOC: EC 21:26
DX: F23 Brief psychotic disorder (principal); F10.10 Alcohol abuse, uncomplicated; I48.91 Unspecified atrial fibrillation; I10 Essential (primary) hypertension; F17.200 Nicotine dependence, unspecified, uncomplicated
CPT/HCPCS: 82075; 99284

== ENCOUNTER 2021-06-08 05:21 | Emergency (ER) | payer OTHER ==
[2021-06-08 05:29] VITALS: TEMP 98.6
--- NOTE | 2021-06-08 06:26 | ED ---
Psych HPI - General Source: patient, police Mode of arrival: ambulatory <Violet Perez - Last Filed: 06/08/21 07:51> <Rico Rahman - Last Filed: 06/08/21 15:59> - General Chief Complaint: Psychiatric Symptoms Stated Complaint: Police petition Time Seen by Provider: 06/08/21 06:01 - History of Present Illness Initial Comments: Patient is a 55-year-old male with history of mental illness, A. fib and hypertension, presenting to the emergency department with police escort and a petition for psychiatric evaluation. According to police, they brought him in for paranoid-like behavior, he was putting branches and other people's cars and he was seeing animals in the [place]. He states he's been seeing looses. Patient denies any pain anywhere, denies any suicidal or homicidal thoughts. Patient states he's been taking his prescribed medications. He denies any chest pain or shortness of breath, he denies any alcohol or drug use. He has no further complaints at this time. His vitals are stable upon arrival. (Violet Perez) - Related Data Home Medications Medication Instructions Recorded Confirmed Cyclobenzaprine [Flexeril] 5 mg PO TID PRN 01/24/21 06/08/21 ALPRAZolam [Xanax] 0.5 mg PO BID PRN 06/08/21 06/08/21 Gabapentin [Neurontin] 300 mg PO BID PRN 06/08/21 06/08/21 Melatonin 3 mg PO HS PRN 06/08/21 06/08/21 Previous Rx's Medication Instructions Recorded Albuterol Inhaler [Ventolin Hfa 2 puff INHALATION RT-Q6H PRN 30 12/12/20 Inhaler] Days puff Metoprolol Succinate (ER) [Toprol 100 mg PO DAILY 30 Days tab.er.24h 12/12/20 XL] Amitriptyline HCl [Elavil] 50 mg PO HS 30 Days tab 01/29/21 Allergies Allergy/AdvReac Type Severity Reaction Status Date / Time diphenhydramine HCl Allergy Itching Verified 04/03/21 21:28 [From Benadryl] Review of Systems ROS Other: All systems not noted in ROS Statement are negative. <Violet Perez - Last Filed: 06/08/21 07:51> ROS Other: All systems not noted in ROS Statement are negative. <Rico Rahman Zahraa - Last Filed: 06/08/21 15:59> ROS Statement: Those systems with pertinent positive or pertinent negative responses have been documented in the HPI. Past Medical History Past Medical History: Atrial Fibrillation, Hypertension Additional Past Medical History / Comment(s): migranes History of Any Multi-Drug Resistant Organisms: None Reported Past Surgical History: Ablation Additional Past Surgical History / Comment(s): Ablasion for AFIB. Past Psychological History: Anxiety Smoking Status: Current every day smoker Past Alcohol Use History: Daily Past Drug Use History: Marijuana - Past Family History Mother Family Medical History: No Reported History family Family Medical History: No Reported History <Violet Perez - Last Filed: 06/08/21 07:51> General Exam <Violet Perez - Last Filed: 06/08/21 07:51> - General Exam Comments Initial Comments: GENERAL: Patient is well-developed and well-nourished. Patient is nontoxic and in no acute distress. HEAD: Atraumatic, normocephalic. EYES: Pupils equal round and reactive to light, extraocular movements intact, sclera anicteric, conjunctiva are normal. Eyelids were unremarkable. ENT: Nares patent, oropharynx clear without exudates. Moist mucous membranes. NECK: Normal range of motion, supple without lymphadenopathy or JVD. LUNGS: Unlabored respirations. Breath sounds clear to auscultation bilaterally and equal. No wheezes rales or rhonchi. HEART: Regular rate and rhythm without murmurs, rubs or gallops. ABDOMEN: Soft, nontender, normoactive bowel sounds. MUSCULOSKELETAL: Normal extremities with adequate strength and normal range of motion, no pitting or edema. No clubbing or cyanosis. NEUROLOGICAL: Patient is alert and oriented x 3. Motor and sensory are also intact. Cranial nerves II through XII grossly intact. Symmetrical smile. Normal speech, normal gait. PSYCH: Patient appears paranoid, seeing things that are not there. SKIN: Warm, Dry, normal turgor, no rashes or lesions noted. (Violet Perez) Course Vital Signs 06/08/21 06/08/21 06/08/21 05:25 10:24 12:00 Temperature 98.6 F Pulse Rate 99 98 Respiratory 18 18 20 Rate Blood Pressure 139/83 132/75 O2 Sat by Pulse 98 98 98 Oximetry 06/08/21 14:00 Temperature Pulse Rate Respiratory 18 Rate Blood Pressure O2 Sat by Pulse 95 Oximetry Medical Decision Making - Lab Data Result diagrams: 06/08/21 07:17 06/08/21 07:17 <Violet Perez - Last Filed: 06/08/21 07:51> - Lab Data Result diagrams: 06/08/21 07:17 06/08/21 07:17 <Rico Rahman - Last Filed: 06/08/21 15:59> - Medical Decision Making Patient is a 55-year-old male with history of mental illness, hypertension, presenting with police escort and a petition for paranoid behavior. He denies any suicidal or homicidal thoughts. He is seeing things that are not there. He denies any alcohol or drug use. (Violet Perez) Patient evaluated by EPS who recommended discharge with outpatient management. (Rico Rahman) - Lab Data Lab Results 06/08/21 06/08/21 06/08/21 Range/Units 07:17 07:17 11:13 WBC 8.2 (3.8-10.6) k/uL RBC 3.87 L (4.30-5.90) m/uL Hgb 13.1 (13.0-17.5) gm/dL Hct 37.8 L (39.0-53.0) % MCV 97.8 (80.0-100.0) fL MCH 33.8 (25.0-35.0) pg MCHC 34.6 (31.0-37.0) g/dL RDW 13.0 (11.5-15.5) % Plt Count 194 (150-450) k/uL MPV 8.9 Neutrophils % 77 % Lymphocytes % 13 % Monocytes % 6 % Eosinophils % 1 % Basophils % 0 % Neutrophils # 6.3 (1.3-7.7) k/uL Lymphocytes # 1.1 (1.0-4.8) k/uL Monocytes # 0.5 (0-1.0) k/uL Eosinophils # 0.1 (0-0.7) k/uL Basophils # 0.0 (0-0.2) k/uL Sodium 138 (137-145) mmol/L Potassium 3.6 (3.5-5.1) mmol/L Chloride 102 (98-107) mmol/L Carbon Dioxide 27 (22-30) mmol/L Anion Gap 9 mmol/L BUN 38 H (9-20) mg/dL Creatinine 1.17 (0.66-1.25) mg/dL Est GFR (CKD-EPI)AfAm 81 (>60 ml/min/1.73 sqM) Est GFR (CKD-EPI)NonAf 70 (>60 ml/min/1.73 sqM) Glucose 155 H (74-99) mg/dL Calcium 9.8 (8.4-10.2) mg/dL Total Bilirubin 1.4 H (0.2-1.3) mg/dL AST 84 H (17-59) U/L ALT 24 (4-49) U/L Alkaline Phosphatase 76 (38-126) U/L Total Protein 6.7 (6.3-8.2) g/dL Albumin 4.3 (3.5-5.0) g/dL Urine Opiates Screen Not Detected (NotDetected) Ur Oxycodone Screen Not Detected (NotDetected) Urine Methadone Screen Not Detected (NotDetected) Ur Propoxyphene Screen Not Detected (NotDetected) Ur Barbiturates Screen Not Detected (NotDetected) U Tricyclic Antidepress Detected H (NotDetected) Ur Phencyclidine Scrn Not Detected (NotDetected) Ur Amphetamines Screen Not Detected (NotDetected) U Methamphetamines Scrn Detected H (NotDetected) U Benzodiazepines Scrn Not Detected (NotDetected) Urine Cocaine Screen Not Detected (NotDetected) U Marijuana (THC) Screen Detected H (NotDetected) - EKG Data EKG Comments: Normal sinus rhythm, septal infarct, age undetermined, lateral infarct, age undetermined, no signs of acute ST segment elevation. Similar to previous on 08/15/2020. Ventricular rate 83, DE interval 178, QTc 386. (Violet Perez) Disposition <Violet Perez - Last Filed: 06/08/21 07:51> Is patient prescribed a controlled substance at d/c from ED?: No <Rico Rahman - Last Filed: 06/08/21 15:59> Clinical Impression: Paranoia Disposition: HOME SELF-CARE Condition: Fair Instructions (If sedation given, give patient instructions): Psychotic Disorder (ED) Referrals: Ranjeet Cano MD [Primary Care Provider] - 1-2 days
[2021-06-08 07:25] LABS: Basophils % (A) 0 %; Eosinophils # (A) 0.1 k/uL (0-0.7); Eosinophils % (A) 1 %; HCT 37.8 % (39.0-53.0); HGB 13.1 gm/dL (13.0-17.5); Lymphocytes # (A) 1.1 k/uL (1.0-4.8); Lymphocytes % (A) 13 %; MCH 33.8 pg (25.0-35.0); MCHC 34.6 g/dL (31.0-37.0); MCV 97.8 fL (80.0-100.0); Mean Platelet Volume 8.9; Monocytes # (A) 0.5 k/uL (0-1.0); Monocytes % (A) 6 %; Neutrophils # (A) 6.3 k/uL (1.3-7.7); Neutrophils % (A) 77 %; Platelet Count 194 k/uL (150-450); RBC 3.87 m/uL (4.30-5.90); WBC 8.2 k/uL (3.8-10.6)
[2021-06-08 07:34] LABS: Albumin 4.3 g/dL (3.5-5.0); Calcium 9.8 mg/dL (8.4-10.2); Potassium 3.6 mmol/L (3.5-5.1); Total Bilirubin 1.4 mg/dL (0.2-1.3); Total Protein 6.7 g/dL (6.3-8.2)
[2021-06-08 11:44] LABS: Amphetamine Screen,Urine Not Detected (NotDetected); Barbiturate Screen,Urine Not Detected (NotDetected); Benzodiazepines Screen,Urine Not Detected (NotDetected); Cocaine Screen,Urine Not Detected (NotDetected); Methadone Screen, Urine Not Detected (NotDetected); Opiate Screen,Urine Not Detected (NotDetected); Oxycodone Screen, Urine Not Detected (NotDetected); Phencyclidine Screen,Urine Not Detected (NotDetected); Tricyclic Antidepressant,Urine Detected (NotDetected); Urn Cannabinoid Scrn Detected (NotDetected)
[2021-06-08 14:42] VITALS: RESP 18
[2021-06-08 16:08] VITALS: BP 114/74; PULSE 77
== END 2021-06-08 16:23 | disposition home or self-care (01) ==
LOC: EC 05:21
DX: F22 Delusional disorders (principal); F17.200 Nicotine dependence, unspecified, uncomplicated; I10 Essential (primary) hypertension; Z88.8 Allergy status to other drugs, medicaments and biological substances
CPT/HCPCS: 36415; 80053; 80306; 85025; 93005; 99285

== ENCOUNTER 2021-06-29 10:15 | Emergency (ER) | payer OTHER ==
[2021-06-29 10:24] VITALS: BP 160/99; PULSE 116; RESP 18; TEMP 98.4
[2021-06-29 11:13] LABS: Amphetamine Screen,Urine Not Detected (NotDetected); Barbiturate Screen,Urine Not Detected (NotDetected); Benzodiazepines Screen,Urine Detected (NotDetected); Cocaine Screen,Urine Not Detected (NotDetected); Methadone Screen, Urine Not Detected (NotDetected); Opiate Screen,Urine Not Detected (NotDetected); Oxycodone Screen, Urine Not Detected (NotDetected); Phencyclidine Screen,Urine Not Detected (NotDetected); Tricyclic Antidepressant,Urine Detected (NotDetected); Urn Cannabinoid Scrn Detected (NotDetected)
--- NOTE | 2021-06-29 11:46 | ED ---
Psych HPI - General Chief Complaint: Psychiatric Symptoms Stated Complaint: pickup order Time Seen by Provider: 06/29/21 10:32 Source: patient, police, RN notes reviewed Mode of arrival: ambulatory Limitations: no limitations - History of Present Illness Initial Comments: 55-year-old male presents emergency Department chief complaint of a court order petition. Patient was picked up by police for evaluation psychiatric issues. Patient denies any complaints denies being suicidal homicidal depressed and anxious. Patient states he missed an appointment with [facility] complaints he was sick and did not have his phone. Patient has no other complaints currently. - Related Data Home Medications Medication Instructions Recorded Confirmed Cyclobenzaprine [Flexeril] 5 mg PO TID PRN 01/24/21 06/08/21 ALPRAZolam [Xanax] 0.5 mg PO BID PRN 06/08/21 06/08/21 Gabapentin [Neurontin] 300 mg PO BID PRN 06/08/21 06/08/21 Melatonin 3 mg PO HS PRN 06/08/21 06/08/21 Previous Rx's Medication Instructions Recorded Albuterol Inhaler [Ventolin Hfa 2 puff INHALATION RT-Q6H PRN 30 12/12/20 Inhaler] Days puff Metoprolol Succinate (ER) [Toprol 100 mg PO DAILY 30 Days tab.er.24h 12/12/20 XL] Amitriptyline HCl [Elavil] 50 mg PO HS 30 Days tab 01/29/21 Allergies Allergy/AdvReac Type Severity Reaction Status Date / Time diphenhydramine HCl Allergy Itching Verified 06/29/21 10:24 [From Christopher] Review of Systems ROS Statement: Those systems with pertinent positive or pertinent negative responses have been documented in the HPI. ROS Other: All systems not noted in ROS Statement are negative. Past Medical History Past Medical History: Atrial Fibrillation, Hypertension Additional Past Medical History / Comment(s): migranes History of Any Multi-Drug Resistant Organisms: None Reported Past Surgical History: Ablation Additional Past Surgical History / Comment(s): Ablasion for AFIB. Past Psychological History: Anxiety Smoking Status: Current every day smoker Past Alcohol Use History: Daily Past Drug Use History: Marijuana - Past Family History Mother Family Medical History: No Reported History family Family Medical History: No Reported History General Exam Limitations: no limitations General appearance: alert, in no apparent distress Head exam: Present: atraumatic, normocephalic, normal inspection Eye exam: Present: normal appearance, PERRL, EOMI. Absent: scleral icterus, conjunctival injection, periorbital swelling ENT exam: Present: normal exam, normal oropharynx, mucous membranes moist Neck exam: Present: normal inspection, full ROM. Absent: tenderness, meningismus, lymphadenopathy Respiratory exam: Present: normal lung sounds bilaterally. Absent: respiratory distress, wheezes, rales, rhonchi, stridor Cardiovascular Exam: Present: regular rate, normal rhythm, normal heart sounds. Absent: systolic murmur, diastolic murmur, rubs, gallop, clicks Neurological exam: Present: alert, oriented X3, CN II-XII intact Skin exam: Present: warm, dry, intact, normal color. Absent: rash Course Vital Signs 06/29/21 10:18 Temperature 98.4 F Pulse Rate 116 H Respiratory 18 Rate Blood Pressure 160/99 O2 Sat by Pulse 100 Oximetry Medical Decision Making - Medical Decision Making Patient advised psychiatric services will be discharged. - Lab Data Lab Results 06/29/21 Range/Units 10:51 Urine Opiates Screen Not Detected (NotDetected) Ur Oxycodone Screen Not Detected (NotDetected) Urine Methadone Screen Not Detected (NotDetected) Ur Propoxyphene Screen Not Detected (NotDetected) Ur Barbiturates Screen Not Detected (NotDetected) U Tricyclic Antidepress Detected H (NotDetected) Ur Phencyclidine Scrn Not Detected (NotDetected) Ur Amphetamines Screen Not Detected (NotDetected) U Methamphetamines Scrn Not Detected (NotDetected) U Benzodiazepines Scrn Detected H (NotDetected) Urine Cocaine Screen Not Detected (NotDetected) U Marijuana (THC) Screen Detected H (NotDetected) Disposition Clinical Impression: Depressive disorder Disposition: HOME SELF-CARE Condition: Stable Additional Instructions: Please return to the Emergency Department if symptoms worsen or any other concerns. Is patient prescribed a controlled substance at d/c from ED?: No Referrals: Ranjeet Cano MD [Primary Care Provider] - 1-2 days Time of Disposition: 12:09
== END 2021-06-29 12:27 | disposition home or self-care (01) ==
LOC: EC 10:15
DX: F32.9 Major depressive disorder, single episode, unspecified (principal); F17.200 Nicotine dependence, unspecified, uncomplicated; I10 Essential (primary) hypertension; Z88.8 Allergy status to other drugs, medicaments and biological substances
CPT/HCPCS: 80306; 82075; 99284

== ENCOUNTER 2021-11-26 06:03 | Day surgery (SDC) | payer OTHER ==
[2021-11-21 09:21] VITALS: BMI 24.3
[~2021-11-26 06:03] MED LIST: ALPRAZolam 0.25 MG TAB PO PRN; ALPRAZolam 0.5 MG TAB PO PRN; ASPIRIN 325 MG TAB PO STA; ATORVASTATIN 80 MG TAB PO STA; LACTATED RINGERS 1,000 ML IV SCH; NITROGLYCERIN SL TABS 0.4 MG TAB SUBLINGUAL PRN; SODIUM CHLORIDE 0.9% 1,000 ML in EMPTY BAG 1 BAG IV SCH
[2021-11-26] MEDS ORDERED: SODIUM CHLORIDE 0.9% 1,000 ML IV ONE (06:18)
[2021-11-26 06:25] VITALS: RESP 16; TEMP 98.1
[2021-11-26 06:33] LABS: HCT 43.6 % (39.0-53.0); MCH 32.5 pg (25.0-35.0); MCHC 32.1 g/dL (31.0-37.0); MCV 101.4 fL (80.0-100.0); Mean Platelet Volume 8.5; Platelet Count 251 k/uL (150-450); RDW 13.1 % (11.5-15.5); WBC 5.6 k/uL (3.8-10.6)
[2021-11-26 06:47] LABS: African American GFR (CKD) >90 (>60 ml/min/1.73 sqM); Anion Gap 5 mmol/L; Blood Urea Nitrogen 18 mg/dL (9-20); Calcium 8.9 mg/dL (8.4-10.2); Carbon Dioxide 27 mmol/L (22-30); Chloride 107 mmol/L (98-107); Glucose 94 mg/dL (74-99); Non-African American GFR(CKD) >90 (>60 ml/min/1.73 sqM); Potassium 4.6 mmol/L (3.5-5.1); Sodium 139 mmol/L (137-145)
[2021-11-26 06:58] LABS: Eosinophils # (M) 0.39 k/uL (0-0.7); Lymphocytes # (M) 1.68 k/uL (1.0-4.8); Monocytes # (M) 0.95 k/uL (0-1.0); Neutrophils # (M) 2.58 k/uL (1.3-7.7); Neutrophils % (M) 46 %; Nucleated Red Blood Cells 0 /100 WBC (0-0); Total Cells Counted 100
[2021-11-26] MEDS ORDERED: fentaNYL (PF) 50 MCG/ML 2 ML AMP ONE (07:27)
[2021-11-26] MEDS ORDERED: LIDOCAINE 1% INJ 10MG/ML (20 ML MDV) ONE (07:27)
[2021-11-26] MEDS ORDERED: VERAPAMIL 2.5 MG/ML 2 ML AMP ONE (07:27)
[2021-11-26] MEDS: MIDAZOLAM 2 MG/2 ML VIAL IV ONE ×2 (07:40→07:45)
[2021-11-26] MEDS ORDERED: fentaNYL (PF) 50 MCG/ML 2 ML AMP IV ONE (07:41)
[2021-11-26] MEDS ORDERED: LIDOCAINE 1% INJ 10MG/ML (20 ML MDV) SQ ONE (07:43)
[2021-11-26] MEDS ORDERED: VERAPAMIL SYRINGE (5 MG/10 ML) INTRAARTER ONE (07:48)
[2021-11-26] MEDS ORDERED: HEPARIN SODIUM 1,000 UN/ML (10ML VL) IV ONE (07:51)
[2021-11-26] MEDS ORDERED: IOPAMIDOL-370 125ML BTL INJ ONE (07:59)
[2021-11-26] MEDS ORDERED: RX INFO: IV CONTRAST WAS GIVEN 1 EACH MISC MISCELLANE PRN (08:11)
--- NOTE | 2021-11-26 08:11 | P.CARDCATH ---
Description of Procedure: PROCEDURES PERFORMED: Left heart catheterization, bilateral coronary angiography INDICATION: Chest pain concerning for angina HISTORY: Patient is a pleasant 56-year-old male with paroxysmal atrial fibrillation, atrial flutter status post ablation, prior alcoholic cardiomyopathy and tobacco abuse who normally follows with Dr. Sierra. He has been having episodes of chest pain which can occur with exertion however can occur at rest or last 2 months and despite negative stress test he has been concerned and therefore heart catheterization was recommended. CONSENT:I have discussed the risks, benefits and alternative therapies for the above-mentioned procedure and for both sedation/analgesia as well as necessary blood product administration, if indicated, as they pertain to this patient. The patient has indicated understanding and acceptance of the risks and procedures discussed. PROCEDURE: After the risks, benefits and alternatives of the above mentioned procedure explained in detail with the patient, informed consent was obtained. Patient was taken to the catheterization lab and prepped and draped in usual fashion. 1% lidocaine was used to anesthetize the right radial artery. A 6- [place] sheath was placed in the right radial artery using modified Seldinger technique. Left coronary angiography was performed with a 5-[place] JL 3.5 catheter and right coronary angiography was performed with a 5-[place] JR5 catheter in various views. A 5-[place] FR5 catheter was inserted into the left ventricle and pressure measurements were obtained. The right radial sheath was removed and a TR band was placed with hemostasis achieved. The patient tolerated the procedure well. Patient was transported back to the post ca theterization holding area in stable condition. Conscious Sedation: Patient was monitored under the direct supervision of vision of myself for conscious sedation using Versed and fentanyl for a total duration of 18 minutes HEMODYNAMICS: Ao: 134/78 LV: 139/4. LVEDP 15 SELECTIVE CORONARY ARTERIOGRAPHY: LEFT MAIN: The left main is a large caliber vessel which bifurcates into the LAD and circumflex. There is diffuse disease including 30% left main stenosis. LEFT ANTERIOR DESCENDING CORONARY ARTERY: LAD is a moderate caliber vessel which appears to have diffuse mild disease and wraps around to the apex. There is proximal LAD 30-40% stenosis and otherwise mild 20% stenosis. LEFT CIRCUMFLEX CORONARY ARTERY: Left circumflex is a moderate caliber vessel with 10% stenosis. RIGHT CORONARY ARTERY: The right coronary artery is a large caliber vessel which gives off a PDA and PLV branch and is the dominant vessel. There is heavy calcification and 30% RCA stenosis. FINAL IMPRESSION: 1. Diffuse mild CAD as described above including 30% left main, 30-40% LAD and 30% RCA stenosis. 2. Normal left sided filling pressures PLAN: 1. Aggressive risk factor modification per most recent ACC/AHA guidelines. 2. Tobacco cessation. 3. Follow-up in the office in 1-2 weeks.
[2021-11-26 12:03] VITALS: BP 112/72; PULSE 60
== END 2021-11-26 11:58 | disposition home or self-care (01) ==
LOC: CATHCVL 06:03
PROVIDERS: ATTEND Internal Medicine
DX: I25.10 Atherosclerotic heart disease of native coronary artery without angina pectoris (principal); I48.0 Paroxysmal atrial fibrillation; I48.92 Unspecified atrial flutter; I10 Essential (primary) hypertension; I42.6 Alcoholic cardiomyopathy; I42.0 Dilated cardiomyopathy; F41.9 Anxiety disorder, unspecified; E78.5 Hyperlipidemia, unspecified; F17.210 Nicotine dependence, cigarettes, uncomplicated; Z20.822 Contact with and (suspected) exposure to COVID-19; Z79.899 Other long term (current) drug therapy; Z88.8 Allergy status to other drugs, medicaments and biological substances
CPT/HCPCS: 93458; 80048; 85025; 87635; C1769; C1894; J2250; J2001; J3010; J1644; Q9967

== ENCOUNTER 2022-03-04 00:23 | Emergency (ER) | payer OTHER ==
[2022-03-04 00:27] VITALS: RESP 18; TEMP 97
[2022-03-04] MEDS ORDERED: PROPARACAINE 0.5% OPHTH DROPS 15 ML BTL LEFT EYE STA (01:05)
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
[2022-03-04] MEDS ORDERED: FLUORESCEIN STRIPS 1 MG STRIP LEFT EYE ONE (01:24)
[2022-03-04] MEDS ORDERED: BACITRACIN OINT 1 EACH PACKET TOPICAL ONE (01:41)
[2022-03-04 02:13] VITALS: BP 140/87; PULSE 78
== END 2022-03-04 02:18 | disposition home or self-care (01) ==
LOC: EC 00:23
DX: S05.02XA Injury of conjunctiva and corneal abrasion without foreign body, left eye, initial encounter (principal); I10 Essential (primary) hypertension; F17.200 Nicotine dependence, unspecified, uncomplicated; Z88.8 Allergy status to other drugs, medicaments and biological substances; X58.XXXA Exposure to other specified factors, initial encounter
CPT/HCPCS: 99283

== ENCOUNTER → 2022-06-30 | Outpatient (CLI) | payer OTHER ==
--- NOTE | 2022-06-30 09:21 | XR ---
EXAMINATION TYPE: XR chest 2V DATE OF EXAM: 06/30/2022 9:15 AM COMPARISON: Chest radiographs from 08/15/2020 TECHNIQUE: XR chest 2V Frontal and lateral views of the chest. CLINICAL INDICATION:Male, 56 years old with history of [id number]; FINDINGS: Lungs/Pleura: There is no evidence of pleural effusion, focal consolidation, or pneumothorax. Pulmonary vascularity: Unremarkable. Heart/mediastinum: Cardiomediastinal silhouette is unremarkable. Musculoskeletal: No acute osseous pathology. IMPRESSION: No acute cardiopulmonary disease/process.
--- NOTE | 2022-06-30 09:27 | XR ---
EXAM TYPE: LUMBAR SPINE X RAY SERIES COMPARISON: NONE HISTORY: Pain TECHNIQUE: 4 views are submitted. FINDINGS: Alignment is anatomic. The pedicles are intact. The transverse processes are intact. There is no s pondylolysis or spondylolisthesis. Facet arthropathy L4-5 and L5-S1. Mild degenerative disc disease thoracolumbar junction. IMPRESSION: 1. Facet arthropathy lower lumbar spine. 2. Mild degenerative disc disease thoracolumbar spine.
== END | disposition home or self-care (01) ==
LOC: LABWHC1 08:49
PROVIDERS: ATTEND Family Medicine
DX: J44.9 Chronic obstructive pulmonary disease, unspecified (principal); M54.32 Sciatica, left side
CPT/HCPCS: 71046; 72110

== ENCOUNTER → 2022-07-01 | Outpatient (CLI) | payer OTHER ==
[2022-07-01 14:44] LABS: Basophils # (A) 0.06 X 10*3/uL (0.00-0.10); Eosinophils # (A) 0.17 X 10*3/uL (0.04-0.35); Eosinophils % (A) 2.8 %; Immature Grans, Automated 0.5 %; Lymphocytes % (A) 32.4 %; MCH 32.3 pg (27.0-32.0); MCHC 32.6 g/dL (32.0-37.0); MCV 99.3 fL (80.0-97.0); Mean Platelet Volume 11.6 fL (9.5-12.2); Monocytes # (A) 0.51 X 10*3/uL (0.20-1.00); Monocytes % (A) 8.3 %; NRBC Per 100 WBC 0 /100 WBCS (0.0-0.0); Platelet Count 235 X 10*3/uL (140-440); RBC 4.33 X 10*6/uL (4.40-5.60); WBC 6.17 X 10*3/uL (4.50-10.00)
[2022-07-01 15:44] LABS: ALT 36 U/L (10-49); AST 41 U/L (14-35); African American GFR (CKD) 116.5 (60.0-200.0); Albumin 4.5 g/dL (3.8-4.9); Albumin/Globulin Ratio 2.04 (1.60-3.17); Alkaline Phosphatase 93 U/L (41-126); BUN/Creat Ratio 31.46 Ratio (12.00-20.00); Blood Urea Nitrogen 25.2 mg/dL (9.0-27.0); Calcium 9.8 mg/dL (8.7-10.3); Carbon Dioxide 28.3 mmol/L (20.0-27.5); Chloride 103 mmol/L (96-109); Globulin 2.2 g/dL (1.6-3.3); Glucose 86 mg/dL (70-110); LDL Cholesterol,Calculated 51.8 mg/dL (0.0-131.0); Non-African American GFR(CKD) 100.5 (60.0-200.0); Potassium 5.8 mmol/L (3.5-5.5); Sodium 141 mmol/L (135-145); Total Bilirubin <0.15 mg/dL (0.30-1.20); Total Protein 6.8 g/dL (6.2-8.2)
== END | disposition home or self-care (01) ==
LOC: LABWHC1 07:50
PROVIDERS: ATTEND Family Medicine
DX: Z00.00 Encounter for general adult medical examination without abnormal findings (principal); Z11.59 Encounter for screening for other viral diseases; Z12.5 Encounter for screening for malignant neoplasm of prostate; E78.5 Hyperlipidemia, unspecified
CPT/HCPCS: 36415; 80053; 80061; 84153; 84439; 84443; 85025; 86803

== ENCOUNTER 2022-07-21 21:32 | Emergency (ER) | payer OTHER ==
[2022-07-21 21:40] VITALS: BP 130/87; PULSE 74; RESP 16; TEMP 97.7
--- NOTE | 2022-07-21 22:14 | ED ---
Alcohol HPI - General Chief Complaint: Alcohol Stated Complaint: ETOH Time Seen by Provider: 07/21/22 21:39 Source: EMS, RN notes reviewed, old records reviewed Mode of arrival: EMS Limitations: no limitations - History of Present Illness Initial Comments: This is patient's second presentation today for alcohol intoxication. Patient is able to hold conversation without significant difficulty. She admits alcohol use alcohol abuse today. 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 -: minute(s) Previous Visits for Alcohol Intoxication?: Yes Recent Trauma: Yes Associated Symptoms: denies other symptoms Treatments Prior to Arrival: none Chronic Alcohol Use: Yes - Related Data Home Medications Medication Instructions Recorded Confirmed Cyclobenzaprine [Flexeril] 5 mg PO TID PRN 01/24/21 11/26/21 Gabapentin [Neurontin] 300 mg PO BID PRN 06/08/21 11/26/21 Melatonin 3 mg PO HS PRN 06/08/21 11/26/21 Simvastatin [Zocor] 20 mg PO DAILY 11/21/21 11/26/21 Spironolactone [Aldactone] 12.5 mg PO DAILY 11/21/21 11/26/21 Aspirin 81 mg PO DAILY PRN 11/26/21 11/26/21 Previous Rx's Medication Instructions Recorded Albuterol Inhaler [Ventolin Hfa 2 puff INHALATION RT-Q6H PRN 30 12/12/20 Inhaler] Days puff Metoprolol Succinate (ER) [Toprol 100 mg PO DAILY 30 Days tab.er.24h 12/12/20 XL] Amitriptyline HCl [Elavil] 50 mg PO HS 30 Days tab 01/29/21 Allergies Allergy/AdvReac Type Severity Reaction Status Date / Time diphenhydramine HCl Allergy Itching Verified 07/21/22 21:40 [From Benadryl] Review of Systems ROS Statement: Those systems with pertinent positive or pertinent negative responses have been documented in the HPI. ROS Other: All systems not noted in ROS Statement are negative. Past Medical History Past Medical History: Atrial Fibrillation, Chest Pain / Angina, Hyperlipidemia, Hypertension Additional Past Medical History / Comment(s): SOB, hx migranes History of Any Multi-Drug Resistant Organisms: None Reported Past Surgical History: Cardiac Ablation Additional Past Surgical History / Comment(s): Ablasion for AFIB. Past Anesthesia/Blood Transfusion Reactions: No Reported Reaction Past Psychological History: Anxiety Smoking Status: Current every day smoker Past Alcohol Use History: Occasional Past Drug Use History: Marijuana - Past Family History Mother Family Medical History: No Reported History family Family Medical History: No Reported History General Exam General appearance: appears intoxicated Head exam: Present: atraumatic, normocephalic, normal inspection Eye exam: Present: normal appearance, PERRL, EOMI. Absent: scleral icterus, conjunctival injection, periorbital swelling ENT exam: Present: normal exam, mucous membranes moist Neck exam: Present: normal inspection. Absent: tenderness, meningismus, lymphadenopathy Respiratory exam: Present: normal lung sounds bilaterally. Absent: respiratory distress, wheezes, rales, rhonchi, stridor Cardiovascular Exam: Present: regular rate, normal rhythm, normal heart sounds. Absent: systolic murmur, diastolic murmur, rubs, gallop, clicks GI/Abdominal exam: Present: soft, normal bowel sounds. Absent: distended, tenderness, guarding, rebound, rigid Extremities exam: Present: normal inspection, full ROM, normal capillary refill. Absent: tenderness, pedal edema, joint swelling, calf tenderness Back exam: Present: normal inspection Neurological exam: Present: alert, oriented X3, CN II-XII intact Psychiatric exam: Present: normal affect, normal mood Skin exam: Present: warm, dry, intact, normal color. Absent: rash Course Vital Signs 07/21/22 21:38 Temperature 97.7 F Pulse Rate 74 Respiratory 16 Rate Blood Pressure 130/87 O2 Sat by Pulse 98 Oximetry - Reevaluation(s) Reevaluation #1: 07/21/22 22:39 Medical records reviewed Reevaluation #2: 07/21/22 22:39 patient was watched in the ER for over an hour during that time and is conversat ionally with staff asking for water and asking for sure Reevaluation #3: 07/21/22 22:39 Patient is refusing to stay in the hospital any longer, is awake alert able to ambulate and can be discharged home Medical Decision Making - Medical Decision Making 56 male with 2 presentations the ER today. Patient presented for alcohol use today. At this point patient will be discharged home as he is awake and alert able to ambulate out of the ER without significant difficulty Disposition Clinical Impression: Alcohol abuse, Depressive disorder, Alcoholic intoxication Disposition: HOME SELF-CARE Condition: Fair Instructions (If sedation given, give patient instructions): Alcohol Intoxication (ED) Is patient prescribed a controlled substance at d/c from ED?: No Referrals: None,Stated [Primary Care Provider] - 1-2 days Time of Disposition: 22:40
== END 2022-07-21 22:39 | disposition home or self-care (01) ==
LOC: EC 21:32
DX: F10.229 Alcohol dependence with intoxication, unspecified (principal); F32.A Depression, unspecified; E78.5 Hyperlipidemia, unspecified; I10 Essential (primary) hypertension; Z86.79 Personal history of other diseases of the circulatory system; F17.200 Nicotine dependence, unspecified, uncomplicated; Z88.8 Allergy status to other drugs, medicaments and biological substances
CPT/HCPCS: 99283

== ENCOUNTER 2022-08-30 01:54 | Emergency (ER) | payer OTHER ==
[2022-08-30 02:05] VITALS: TEMP 97.7
--- NOTE | 2022-08-30 02:20 | ED ---
Lower Extremity Injury HPI - General Chief Complaint: Extremity Injury, Lower Stated Complaint: left knee injury/pain Time Seen by Provider: 08/30/22 02:13 Source: patient, RN notes reviewed Mode of arrival: ambulatory Limitations: no limitations - History of Present Illness Initial Comments: This is a pleasant 57-year-old male who presents emergency back complaining of left knee pain. Patient states for the past few weeks it's been locking up on him. Patient states that he uses able to move it and extend it and get it back into place although he states tonight it seems to be worse usual. Patient states that extending the knee exacerbates the pain. He is pointing to the anterior lateral aspect of the knee. He denies any direct trauma. No ankle or hip problems. No redness. No break in skin integrity. No headache, no fever or chills, no changes in vision or hearing, no sore throat or difficulty with speech, no neck pain, no chest pain or shortness of breath, no abdominal pain, no nausea or vomiting, no changes in urination or bowel movements, no numbness or tingling, no skin rashes or lesions. Past medical, surgical, social, and family history reviewed. MD Complaint: knee injury - Related Data Home Medications Medication Instructions Recorded Confirmed Cyclobenzaprine [Flexeril] 5 mg PO TID PRN 01/24/21 11/26/21 Gabapentin [Neurontin] 300 mg PO BID PRN 06/08/21 11/26/21 Melatonin 3 mg PO HS PRN 06/08/21 11/26/21 Simvastatin [Zocor] 20 mg PO DAILY 11/21/21 11/26/21 Spironolactone [Aldactone] 12.5 mg PO DAILY 11/21/21 11/26/21 Aspirin 81 mg PO DAILY PRN 11/26/21 11/26/21 Previous Rx's Medication Instructions Recorded Albuterol Inhaler [Ventolin Hfa 2 puff INHALATION RT-Q6H PRN 30 12/12/20 Inhaler] Days puff Metoprolol Succinate (ER) [Toprol 100 mg PO DAILY 30 Days tab.er.24h 12/12/20 XL] Amitriptyline HCl [Elavil] 50 mg PO HS 30 Days tab 01/29/21 Allergies Allergy/AdvReac Type Severity Reaction Status Date / Time diphenhydramine HCl Allergy Itching Verified 07/21/22 21:40 [From Benadryl] Review of Systems ROS Statement: Those systems with pertinent positive or pertinent negative responses have been documented in the HPI. ROS Other: All systems not noted in ROS Statement are negative. Past Medical History Past Medical History: Atrial Fibrillation, Chest Pain / Angina, Hyperlipidemia, Hypertension Additional Past Medical History / Comment(s): SOB, hx migranes History of Any Multi-Drug Resistant Organisms: None Reported Past Surgical History: Cardiac Ablation Additional Past Surgical History / Comment(s): Ablasion for AFIB. Past Anesthesia/Blood Transfusion Reactions: No Reported Reaction Past Psychological History: Anxiety Smoking Status: Current every day smoker Past Alcohol Use History: Occasional Past Drug Use History: Marijuana - Past Family History Mother Family Medical History: No Reported History family Family Medical History: No Reported History General Exam Limitations: no limitations General appearance: alert, in no apparent distress Head exam: Present: atraumatic, normocephalic, normal inspection Eye exam: Present: normal appearance, PERRL, EOMI. Absent: scleral icterus, conjunctival injection, periorbital swelling ENT exam: Present: normal exam, normal oropharynx, mucous membranes dry, mucous membranes moist, normal external ear exam Neck exam: Present: normal inspection, full ROM. Absent: tenderness, meningismus, lymphadenopathy Respiratory exam: Present: normal lung sounds bilaterally. Absent: respiratory distress, wheezes, rales, rhonchi, stridor Cardiovascular Exam: Present: regular rate, normal rhythm, normal heart sounds. Absent: systolic murmur, diastolic murmur, rubs, gallop, clicks GI/Abdominal exam: Present: soft, normal bowel sounds. Absent: distended, tenderness, guarding, rebound, rigid Extremities exam: Present: normal inspection, full ROM, tenderness, normal capillary refill, other (Patient has tenderness to the medial aspect of the right knee. Full range of motion with pain. No effusion. Minimal crepitus with range of motion. No evidence of dislocation. Distal CMS intact). Absent: pedal edema, joint swelling, calf tenderness Back exam: Present: normal inspection Neurological exam: Present: alert, oriented X3, CN II-XII intact Psychiatric exam: Present: normal affect, normal mood Skin exam: Present: warm, dry, intact, normal color. Absent: rash Course Vital Signs 08/30/22 08/30/22 02:00 02:53 Temperature 97.7 F Pulse Rate 89 80 Respiratory 18 16 Rate Blood Pressure 138/87 130/86 O2 Sat by Pulse 99 96 Oximetry - Reevaluation(s) Reevaluation #1: 08/30/22 03:19 Patient reevaluated and is still complaining of knee pain. X-rays did not show any acute pathology. On physical examination patient does have a notable effusion however no erythema. No significant calor. No evidence of infectious process. Patient able to flex the knee to 110. Patient has most of the pain when he extends the knee fully. Remainder of the orthopedic examination is benign. Full muscle strength in all major muscle groups. Full range of motion all major joints. No evidence of vascular insult. No evidence of infectious process. Medical Decision Making - Medical Decision Making We'll apply a knee immobilizer. Discussed refraining from significant stress to the knee. Discussed follow-up with orthopedics. Patient voices understanding. All questions answered. Patient was told to return to the ER for any signs or symptoms worsen. Told to return immediately if any other problems arise. All questions answered. Treatment plan discussed. Patient in agreement Every effort has been made to ensure accuracy of this dictation. However, due to the limitations of electronic medical records and dictation devices, errors in charting still occur. Welfare Eligibility Interviewer Dr. 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 Otherwise no acute pathology as read by radiology Disposition Clinical Impression: Internal derangement of left knee Disposition: HOME SELF-CARE Condition: Good Instructions (If sedation given, give patient instructions): Knee Pain (ED), Knee Immobilizer (ED) Additional Instructions: Follow-up with orthopedics as directed. Return to the ER immediately if any symptoms worsen, new symptoms arise, or any other problems develop. Is patient prescribed a controlled substance at d/c from ED?: No Referrals: Damon Guillermo DO [Doctor of Osteopathic Medicine] - 1-2 days Time of Disposition: 03:21
[2022-08-30 02:55] VITALS: BP 130/86; PULSE 80; RESP 16
--- NOTE | 2022-08-30 03:03 | XR ---
EXAMINATION TYPE: XR knee complete LT DATE OF EXAM: 08/30/2022 COMPARISON: NONE HISTORY: Knee pain TECHNIQUE: 3 views FINDINGS: There is no evidence of fracture nor dislocation. Joint spaces are fairly normal. There is small spur on the superior patella. There is calcification in the proximal tibia consistent with old bone infarct. No definite joint effusion. IMPRESSION: No acute abnormality of the left knee. No fracture.
[2022-08-30] MEDS ORDERED: KETOROLAC 15 MG/ML 1 ML VIAL IM STA (03:17)
[2022-08-30] MEDS ORDERED: Acetaminophen-Codeine 300-30mg TAB PO STA (03:17)
[2022-08-30] MEDS ORDERED: IBUPROFEN 600 MG STARTER PACK 4 TAB BTL PO STA (03:18)
[2022-08-30] MEDS ORDERED: ACET/COD 300 MG/30 MG STARTER PACK 6 TAB BTL PO STA (03:18)
== END 2022-08-30 03:49 | disposition home or self-care (01) ==
LOC: EC 01:54
DX: M23.92 Unspecified internal derangement of left knee (principal); I48.91 Unspecified atrial fibrillation; I10 Essential (primary) hypertension; E78.5 Hyperlipidemia, unspecified; F17.200 Nicotine dependence, unspecified, uncomplicated; Z88.8 Allergy status to other drugs, medicaments and biological substances; Z79.899 Other long term (current) drug therapy
CPT/HCPCS: 73562; 96372; 99283; J1885

== ENCOUNTER 2022-11-17 16:58 | Inpatient (IN) | payer MEDICAID, OTHER ==
--- NOTE | 2022-11-17 17:20 | ED ---
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 He denies any suicidal thoughts, homicidal thoughts, hallucinations or delusions. Overall he feels well at this time but is agitated to be here at the hospital. (Mary Grace Ruiz) Is a 57-year-old male who presents emergency Department in police custody for evaluation by the psychiatric department. Patient has petition and hand and it states that the neighbor has filled out a petition went to court order for his evaluation. The petition states that the patient threatens a neighbor multiple times and the patient is also been putting holes in the byrne of his apartment. According to the neighbor the smoke alarm was going off last night. Also the patient has a very systolic and the neighbor is afraid of the dog and the patient. Patient denies being suicidal or homicidal. Patient states he never has made any comments to the woman and never threatened the woman. Patient states he has no intention of harming the woman. Patient denies any holes in the byrne. Patient denies any physical complaints today. Patient denies any fever chills or cough. Patient denies chest pain difficult breathing shortest breath per patient denies abdominal pain patient denies nausea vomiting diarrhea. Patient states he was drinking earlier today. (Garret Graves) - Related Data Home Medications Medication Instructions Recorded Confirmed Cyclobenzaprine [Flexeril] 5 mg PO TID PRN 01/24/21 11/17/22 Gabapentin [Neurontin] 300 mg PO BID PRN 06/08/21 11/17/22 Simvastatin [Zocor] 20 mg PO HS 11/21/21 11/17/22 ALPRAZolam [Xanax] 0.5 mg PO BID PRN 11/17/22 11/17/22 Metoprolol Succinate (ER) [Toprol 100 mg PO HS 11/17/22 11/17/22 XL] Nicotine 21Mg/24Hr Patch [Habitrol] 1 patch TRANSDERM DAILY PRN 11/17/22 11/17/22 Previous Rx's Medication Instructions Recorded Albuterol Inhaler [Ventolin Hfa 2 puff INHALATION RT-Q6H PRN 30 12/12/20 Inhaler] Days puff Amitriptyline HCl [Elavil] 50 mg PO HS 30 Days tab 01/29/21 Allergies Allergy/AdvReac Type Severity Reaction Status Date / Time diphenhydramine HCl Allergy Itching Verified 11/17/22 22:15 [From Benadryl] Review of Systems ROS Other: All systems not noted in ROS Statement are negative. <Mary Grace Ruiz - Last Filed: 11/17/22 17:17> ROS Other: All systems not noted in ROS Statement are negative. <Garret Graves - Last Filed: 11/17/22 20:42> ROS Other: All systems not noted in ROS Statement are negative. <Garret Logan - Last Filed: 11/18/22 03:14> ROS Statement: Those systems with pertinent positive or pertinent negative responses have been documented in the HPI. Past Medical History Past Medical History: Atrial Fibrillation, Chest Pain / Angina, Hyperlipidemia, Hypertension Additional Past Medical History / Comment(s): SOB, hx migranes History of Any Multi-Drug Resistant Organisms: None Reported Past Surgical History: Cardiac Ablation Additional Past Surgical History / Comment(s): Ablasion for AFIB. Past Anesthesia/Blood Transfusion Reactions: No Reported Reaction Past Psychological History: Anxiety Smoking Status: Current every day smoker Past Alcohol Use History: Occasional Past Drug Use History: Marijuana - Past Family History Mother Family Medical History: No Reported History family Family Medical History: No Reported History <Mary Grace Ruiz - Last Filed: 11/17/22 17:17> General Exam <Garret Graves - Last Filed: 11/17/22 20:42> - General Exam Comments Initial Comments: GENERAL: Patient is well-developed and well-nourished. Patient is nontoxic and well- hydrated and is in no acute distress. ENT: Neck is soft and supple. No significant lymphadenopathy is noted. Oropharynx is clear. Moist mucous membranes. Neck has full range of motion without eliciting any pain. EYES: The sclera were anicteric and conjunctiva were pink and moist. Extraocular movements were intact and pupils were equal round and reactive to light. Eyelids were unremarkable. PULMONARY: Unlabored respirations. Good breath sounds bilaterally. No audible rales rhonchi or wheezing was noted. CARDIOVASCULAR: There is a regular rate and rhythm without any murmurs gallops or rubs. ABDOMEN: Soft and nontender with normal bowel sounds. SKIN: Skin is clear with no lesions or rashes and otherwise unremarkable. NEUROLOGIC: Patient is alert and oriented x3. Cranial nerves II through XII are grossly intact. Motor and sensory are also intact. Normal speech, volume and content. Symmetrical smile. MUSCULOSKELETAL: Normal extremities with adequate strength and full range of motion. LYMPHATICS: No significant lymphadenopathy is noted PSYCHIATRIC: Patient denies suicidal or homicidal ideations. Patient denies ever having threatened his neighbor (Garret Graves) Course <Garret Logan - Last Filed: 11/18/22 03:14> Vital Signs 11/17/22 17:17 Temperature 97.6 F Pulse Rate 88 Respiratory 18 Rate Blood Pressure 158/91 O2 Sat by Pulse 100 Oximetry - Reevaluation(s) Reevaluation #1: Medically clear for psychiatric evaluation (Garret Logan) Medical Decision Making <Garret Graves - Last Filed: 11/17/22 20:42> <Garret Logan - Last Filed: 11/18/22 03:14> - Medical Decision Making Dr. Logan will be taking over the care of this patient at 9 PM (Garret Graves) 47 male will be admitted for psychiatric evaluation and treatment (Garret Logan) - Lab Data Lab Results 11/17/22 Range/Units 20:59 Urine Opiates Screen Not Detected (NotDetected) Ur Oxycodone Screen Not Detected (NotDetected) Urine Methadone Screen Not Detected (NotDetected) Ur Propoxyphene Screen Not Detected (NotDetected) Ur Barbiturates Screen Not Detected (NotDetected) U Tricyclic Antidepress Detected H (NotDetected) Ur Phencyclidine Scrn Not Detected (NotDetected) Ur Amphetamines Screen Not Detected (NotDetected) U Methamphetamines Scrn Not Detected (NotDetected) U Benzodiazepines Scrn Detected H (NotDetected) Urine Cocaine Screen Not Detected (NotDetected) U Marijuana (THC) Screen Detected H (NotDetected) Disposition <Mary Grace Ruiz - Last Filed: 11/17/22 17:17> <Garret Graves - Last Filed: 11/17/22 20:42> Is patient prescribed a controlled substance at d/c from ED?: No <Garret Logan - Last Filed: 11/18/22 03:14> Clinical Impression: Alcohol abuse, Acute psychosis, Depressive disorder, Suicidal ideation Disposition: TRANSFER TO PSYCH HOSP/UNIT Condition: Fair Referrals: Messi Diego MD [Primary Care Provider] - 1-2 days
[2022-11-17 21:14] LABS: Amphetamine Screen,Urine Not Detected (NotDetected); Barbiturate Screen,Urine Not Detected (NotDetected); Benzodiazepines Screen,Urine Detected (NotDetected); Cocaine Screen,Urine Not Detected (NotDetected); Methadone Screen, Urine Not Detected (NotDetected); Opiate Screen,Urine Not Detected (NotDetected); Oxycodone Screen, Urine Not Detected (NotDetected); Phencyclidine Screen,Urine Not Detected (NotDetected); Tricyclic Antidepressant,Urine Detected (NotDetected); Urn Cannabinoid Scrn Detected (NotDetected)
[2022-11-18] MEDS ORDERED: HALOPERIDOL LACTATE 5 MG/ML 1 ML VIAL IM PRN (04:03)
[2022-11-18] MEDS ORDERED: MAGNESIUM HYDROXIDE 2,400 MG/10 ML CUP PO PRN (04:03)
[2022-11-18] MEDS ORDERED: MAG HYDROX/AL HYDROX/SIMETH 30 ML CUP PO PRN (04:03)
[2022-11-18] MEDS ORDERED: ACETAMINOPHEN TAB 325 MG TAB PO PRN (04:03)
[2022-11-18] MEDS ORDERED: GABAPENTIN 300 MG CAP PO PRN (04:11)
[2022-11-18] MEDS ORDERED: CYCLOBENZAPRINE 5 MG TAB PO PRN (04:11)
[2022-11-18] MEDS ORDERED: ALBUTEROL HFA INHALER INHALATION PRN (04:11)
[2022-11-18] MEDS ORDERED: LORazepam 2 MG/ML INJ IM PRN (04:13)
[2022-11-18] MEDS ORDERED: haloperidoL 5 MG TAB PO PRN (04:13)
[2022-11-18] MEDS: LORazepam 1 MG TAB PO PRN ×2 (04:53→20:15)
[2022-11-18] MEDS: NICOTINE 14MG/24HR PATCH TRANSDERM SCH (10:44)
[2022-11-18] MEDS: GABAPENTIN 300 MG CAP PO SCH ×2 (10:54→20:14)
[2022-11-18] MEDS: METOPROLOL SUCCINATE (ER) 100 MG TAB.ER.24H PO SCH (10:55)
--- NOTE | 2022-11-18 11:42 | P.HP ---
Psychiatric H&P - . H&P Date: 11/18/22 History & Physical: Allergies Allergy/AdvReac Type Severity Reaction Status Date / Time diphenhydramine HCl Allergy Itching Verified 11/18/22 04:25 [From Benadryl] Vital Signs Temp 97.9 F 11/18/22 07:00 Pulse 89 11/18/22 10:57 Resp 16 11/18/22 07:00 BP 165/92 11/18/22 10:57 Pulse Ox 97 11/18/22 04:36 FiO2 Intake & Output 11/17/22 11/18/22 11/18/22 18:59 06:59 18:59 Weight 77.111 kg 73.284 kg Laboratory Last Values Urine Opiates Screen Not Detected (NotDetected) 11/17/22 20:59 Ur Oxycodone Screen Not Detected (NotDetected) 11/17/22 20:59 Urine Methadone Screen Not Detected (NotDetected) 11/17/22 20:59 Ur Propoxyphene Screen Not Detected (NotDetected) 11/17/22 20:59 Ur Barbiturates Screen Not Detected (NotDetected) 11/17/22 20:59 U Tricyclic Antidepress Detected (NotDetected) H 11/17/22 20:59 Ur Phencyclidine Scrn Not Detected (NotDetected) 11/17/22 20:59 Ur Amphetamines Screen Not Detected (NotDetected) 11/17/22 20:59 U Methamphetamines Scrn Not Detected (NotDetected) 11/17/22 20:59 U Benzodiazepines Scrn Detected (NotDetected) H 11/17/22 20:59 Urine Cocaine Screen Not Detected (NotDetected) 11/17/22 20:59 U Marijuana (THC) Screen Detected (NotDetected) H 11/17/22 20:59 Coronavirus (PCR) Not Detected (Not Detectd) 11/18/22 02:28 11/18/22 11:42 IDENTIFYING DATA: Patient is a 57-year-old male with a significant history of alcohol abuse, cannabis abuse, and substance-induced psychosis presents or hospital under pickup order on a petition for mental health evaluation. HPI: Patient presented to the hospital on 11/17/2022, brought in by police on a pickup order. As per petition filled out by the patient's neighbor, "he says he is going to kill me, on my home security videos and drown me and burn the house down. He carries a weapon - a switchblade knife - I've seen him using this knife to shuffle through the mailbox. I put in for a PPO and am waiting for a police response. I'm scared to of him. Today is the first day since have left my house since 11/08. I don't even want to go home because I know he is there. 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 The police came out on November 12, , and and instructed me to come to the court.." On evaluation emergency department by the EPS nurse, the patient vehemently denies any issues or concerns. He presented as cooperative and polite. He did report that he has not had a [id number] with his neighbor in 4-5 days. He does admit that he "wished her a long and lingering " however acknowledges that it was a mean thing to say. He reports that he does not want her . He was subsequently admitted to the psychiatric unit for further observation. The patient signed himself voluntarily onto the psychiatric unit. Upon evaluati on by this provider, the patient is vehemently denying any suicidal or homicidal ideation, intention, and/or plan. He is not reporting any auditory or visual hallucinations. He denies any paranoia or other delusions. He does not endorse any significant delusional thought content. He does acknowledge that he has had negative interactions with his neighbor however vehemently denies that he had a ny intention of wanting to ever hurt her. He states that he is being evicted from his home because his neighbor contacted his landlord that he and his friends were using drugs. He also reports that he owes his landlord money. The patient does admit that his dog is overly protective. He is agreeable to signing a release of information for the [place] [employer]. He is currently alert and oriented in all spheres. He is agreeable to observation but does express concern for his dog. Review of his previous admissions show that the patient does have a significant history of delusional thoughts and paranoia. During his admission in November 2020, he believes that there was a wire inside his body and that there was a lecture magnetic waves affecting him. In January 2021, the patient had an episode of psychosis including hallucinations. PAST PSYCHIATRIC HISTORY: Patient states that he has been diagnosed with psychosis in the past. However during that time, the patient was engaging in substance abuse including the use of cocaine and methamphetamines. He was last hospitalized in a psychiatric unit in January 2021. He was originally open with [facility] however has not followed with them and his case close with them. Previous medication trials include Elavil, melatonin, and gabapentin. Patient denies any history of suicide attempts in the past. PMH: Past Medical History: Atrial Fibrillation, Chest Pain / Angina, Hyperlipidemia, Hypertension Additional Past Medical History / Comment(s): SOB, hx migranes History of Any Multi-Drug Resistant Organisms: None Reported Past Surgical History: Cardiac Ablation Additional Past Surgical History / Comment(s): Ablasion for AFIB. Past Anesthesia/Blood Transfusion Reactions: No Reported Reaction Past Psychological History: Anxiety Smoking Status: Current every day smoker Past Alcohol Use History: Occasional Past Drug Use History: Marijuana ALLERGIES: Diphenhydramine CHEMICAL DEPENDENCY HISTORY: The patient does admit to daily alcohol use. He reports he drinks at least 3 alcoholic beverages per day. He reports 1 pack per day of tobacco use. He does have a long history of alcohol use problems including 6 DUIs in the past. 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 He does report a history of cocaine and methamphetamine use however states that it has been "years." He does report that he uses marijuana on occasion. FAMILY PSYCHIATRIC/SUBSTANCE USE HISTORY: The patient does not recall any family psychiatric problems. SOCIAL HISTORY: Patient was born and raised in [place], [place]. He received his GED while he was incarcerated. He is single, never , has no children. He currently receives unemployment benefits. He currently lives in a duplex by himself with his pet dog. MENTAL STATUS EXAM: General Appearance: Patient appears to be stated age is alert, directable, and attempts to cooperate. Patient appears to have fair hygiene and grooming. Behavior: Patient is seated without any agitated behavior. Psychomotor activity appears normal. Speech: Patient's speech is fluent and nonpressured. Mood/Affect: Patient reports their mood is doing okay, affect is congruent and euthymic. Nonchalant. Suicidality/Homicidality: Patient vehemently denies any suicidal or homicidal ideation, intention, and/or plan. Perceptions: Patient denies any visual hallucinations and denies any auditory hallucinations Though content/process: There is no evidence of any delusional thought content and thought process is linear and goal-directed. Memory and concentration: AOX3, grossly intact for the purposes of this session. Can spell "WORLD" backwards Judgment and insight: Fair STRENGTHS/WEAKNESSES: Strength is that the patient is cooperative and future oriented. Weakness is that the patient engages in heavy substance use INTELLECT: average IMPRESSIONS: Acute psychosis - suspect substance induced Alcohol use disorder Cannabis use disorder Tobacco use disorder PLAN: -Patient is admitted under voluntary status to MHU for stabilization of psychiatric symptoms and safety. Currently, the patient is not presenting with any overt symptoms of psychosis or cristino. He signed a release of information for the [place] [employer] has they have visited him 3 times in the past week. We will need to obtain collateral information in order to confirm what was written in the petition. Patient signed a 72 hour notice for discharge. A message was left for the supervisor stone of the [place] [employer] to contact this provider. -Medications : No medications will be started at this time. -Ativan and Haldol PRN for agitation/aggression -Patient was counselled on substance abuse and desired to cut back on use -Patient was informed of the risks, benefits and side effects of the medication and patient verbally consented to taking the medications. Patient signed med consent form and was placed in chart. -Internal Medicine consult to perform medical evaluation and physical. -NRT - nicotine patch -SW on board for discharge planning. Encourage patient to participate in groups to work on coping skills. 11/18/22 11:42
[2022-11-18] MEDS ORDERED: cloNIDine HCL 0.1 MG TAB PO PRN (12:42)
[2022-11-18] MEDS: AMITRIPTYLINE HCL 50 MG TAB PO SCH (20:14)
[2022-11-18] MEDS: ATORVASTATIN 10 MG TAB PO SCH (20:14)
[2022-11-18] MEDS ORDERED: METOPROLOL SUCCINATE (ER) 100 MG TAB.ER.24H PO SCH (21:00)
--- NOTE | 2022-11-18 22:31 | CONS ---
CONSULTATION REASON FOR CONSULTATION: Advice regarding atrial ablation, multiple medical issues, requested by Psychiatry. HISTORY OF PRESENT ILLNESS: This 57-year-old gentleman with a past medical history of multiple medical issues including atrial fibrillation, being followed by Dr. Messi Diego, admitted for psychiatric evaluation and depression. There is no history of any fever, rigors, or chills. No history of palpitation. PAST MEDICAL HISTORY: Reviewed include atrial fibrillation, rest of the history and rest of the chart is reviewed. HOME MEDICATIONS: Reviewed include Zocor, rest of the medications reviewed, doses reviewed. ALLERGIES: Benadryl. FAMILY HISTORY: No history of heart disease or strokes in the family. SOCIAL HISTORY: Smoking alcohol, THC. REVIEW OF SYSTEMS: A 14-point review is negative except as mentioned. PHYSICAL EXAMINATION: VITAL SIGNS: Pulse is 80, blood pressure 184/102, respirations 15. HEENT: Conjunctivae normal. NECK: No jugular venous distention. CARDIOVASCULAR: S1, S2 muffled. RESPIRATIONS: Diminished at the bases, few scattered rhonchi. ABDOMEN: Soft. NERVOUS SYSTEM: No focal deficits. LABORATORY DATA: Reviewed. ASSESSMENT: 1. Depression. 2. Atrial fibrillation. 3. Hypertension. 4. Hyperlipidemia. 5. Multiple medical issues. RECOMMENDATIONS: This 57-year-old gentleman presented for psychiatric evaluation. At this time, I recommended to continue symptomatic treatment. Clonidine p.r.n. may be used for hypertension emergencies. [place] protocol. Ativan p.r.n. Otherwise, resume the home medications and further recommendations to follow. MMODL / IJN: [id number] /
[2022-11-19] MEDS: GABAPENTIN 300 MG CAP PO SCH ×2 (08:41→20:30)
[2022-11-19] MEDS: METOPROLOL SUCCINATE (ER) 100 MG TAB.ER.24H PO SCH (08:41)
[2022-11-19] MEDS: NICOTINE 14MG/24HR PATCH TRANSDERM SCH (08:41)
[2022-11-19 09:26] LABS: Basophils % (A) 1 %; Eosinophils # (A) 0.2 k/uL (0-0.7); Eosinophils % (A) 5 %; HCT 42.6 % (39.0-53.0); HGB 14.2 gm/dL (13.0-17.5); Lymphocytes # (A) 1.3 k/uL (1.0-4.8); Lymphocytes % (A) 29 %; MCH 32.3 pg (25.0-35.0); MCHC 33.3 g/dL (31.0-37.0); MCV 97.1 fL (80.0-100.0); Mean Platelet Volume 8.6; Monocytes # (A) 0.3 k/uL (0-1.0); Monocytes % (A) 6 %; Neutrophils # (A) 2.6 k/uL (1.3-7.7); Neutrophils % (A) 57 %; Platelet Count 210 k/uL (150-450); RBC 4.39 m/uL (4.30-5.90); WBC 4.6 k/uL (3.8-10.6)
[2022-11-19 09:58] LABS: ALT 20 U/L (4-49); AST 25 U/L (17-59); African American GFR (CKD) >90 (>60 ml/min/1.73 sqM); Albumin 4.1 g/dL (3.5-5.0); Alkaline Phosphatase 71 U/L (38-126); Anion Gap 3 mmol/L; Bilirubin, Delta 0.3 mg/dL (0.0-0.2); Bilirubin,Unconjugated 0.3 mg/dL (0.0-1.1); Blood Urea Nitrogen 17 mg/dL (9-20); Calcium 9.1 mg/dL (8.4-10.2); Carbon Dioxide 29 mmol/L (22-30); Chloride 108 mmol/L (98-107); Glucose 144 mg/dL (74-99); Non-African American GFR(CKD) >90 (>60 ml/min/1.73 sqM); Potassium 4.4 mmol/L (3.5-5.1); Sodium 140 mmol/L (137-145); Total Bilirubin 0.6 mg/dL (0.2-1.3); Total Protein 6.6 g/dL (6.3-8.2)
--- NOTE | 2022-11-19 10:52 | P.PN ---
Progress Note - Text Progress Note Date: 11/19/22 Interval History: Patient was seen wandering the hallways and was directable and agreeable to sp keithk with conventional underwriter in the office. Patient appears to be fairly calm today with conventional underwriter. He claims that he had a more difficult time sleeping last night and only slept about 4-5 hours. He was agreeable to try melatonin tonight. He continues to state that he has different things that he needs to take care of when he leaves and also spoke about his dog. He claims that he still doesn't know "why am a peer". He is denying any depression at this time denying any anxiety. States that he has been going to some groups. Claims of her appetite. Spoke more about discharge planning likely tomorrow. At this time patient denies any suicidal or homical ideations, intent or plan. Patient denies any auditory, visual hallucinations and denies any paranoia or delusions. Patient denies any side effects from the medications and has been compliant with meds. Mental Status Exam: General Appearance: Patient appears to be stated age is alert, directable, and attempts to cooperate. Patient appears to have fair hygiene and grooming. Behavior: Patient is seated without any agitated behavior. Psychomotor activity appears normal. Speech: Patient's speech is fluent and nonpressured. Mood/Affect: Patient reports their mood is doing "all right" affect is congruent Suicidality/Homicidality: Patient denies any suicidal or homicidal ideation, intention, and/or plan. Perceptions: Patient denies any visual hallucinations and denies any auditory hallucinations Though content/process: There is no evidence of any delusional thought content and thought process is linear and goal-directed. Memory and concentration: AOX3, grossly intact for the purposes of this session. Judgment and insight: Fair IMPRESSIONS: Acute psychosis - suspect substance induced Alcohol use disorder Cannabis use disorder Tobacco use disorder Plan: -Patient continues to meet criteria for inpatient psychiatric admission for symptom stabilization and safety. Patient has signed adult voluntary form and medication consent and was placed in patient's chart. Patient signed a 72 hour notice for discharge. A message was left for the supervisor roller printing of the [employer] by Dr Hawkins 11/18. -Medications: continue elavil 50 mg qhs for sleep/mood, melatonin 6 mg qhs for sleep. -When necessary Ativan and Haldol for agitation/aggression. -NRT - nicotine patch -SW on board for discharge planning. Encouraged the patient to participate in milieu. consider discharge tomorrow if patient has a safe plan for discharge.
[2022-11-19 18:52] LABS: Chol/HDL Ratio 2.63 Ratio
[2022-11-19] MEDS: ATORVASTATIN 10 MG TAB PO SCH (20:30)
[2022-11-19] MEDS: AMITRIPTYLINE HCL 50 MG TAB PO SCH (20:30)
[2022-11-19] MEDS: LORazepam 1 MG TAB PO PRN (20:31)
[2022-11-19] MEDS ORDERED: MELATONIN 3 MG TABLET PO SCH (21:00)
[2022-11-20 06:54] VITALS: BP 135/75; PULSE 61; RESP 16; TEMP 98
[2022-11-20] MEDS: METOPROLOL SUCCINATE (ER) 100 MG TAB.ER.24H PO SCH (09:30)
[2022-11-20] MEDS: NICOTINE 14MG/24HR PATCH TRANSDERM SCH (09:30)
[2022-11-20] MEDS: GABAPENTIN 300 MG CAP PO SCH (09:30)
== END 2022-11-20 13:25 | disposition home or self-care (01) | DRG 897 ==
LOC: EC 16:58 → 3MHU 11-18 04:00
PROVIDERS: ADMIT Psychiatry & Neurology Psychiatry; ATTEND Psychiatry & Neurology Psychiatry
PROC: HZ2ZZZZ Detoxification Services for Substance Abuse Treatment (ICD-10-PCS; principal; 2022-11-18)
DX: F14.159 Cocaine abuse with cocaine-induced psychotic disorder, unspecified (principal); R45.851 Suicidal ideations; F15.159 Other stimulant abuse with stimulant-induced psychotic disorder, unspecified; F17.210 Nicotine dependence, cigarettes, uncomplicated; Z20.822 Contact with and (suspected) exposure to COVID-19; Z71.6 Tobacco abuse counseling; E78.5 Hyperlipidemia, unspecified; F10.10 Alcohol abuse, uncomplicated; F12.10 Cannabis abuse, uncomplicated; F32.A Depression, unspecified; F41.9 Anxiety disorder, unspecified; I10 Essential (primary) hypertension; I48.91 Unspecified atrial fibrillation; G43.909 Migraine, unspecified, not intractable, without status migrainosus; Z71.41 Alcohol abuse counseling and surveillance of alcoholic
CPT/HCPCS: 80053; 80061; 80306; 82075; 82248; 83036; 84443; 85025; 87635; 99285